=== PATIENT | male | born 1985 | race Caucasian/White ===

== ENCOUNTER 2017-01-16 17:19 | Emergency (ER) | payer SELFPAY ==
[~2017-01-16] VITALS: Ht 185.4 cm; Wt 68.0 kg
[~2017-01-16 17:19] MED LIST: AZIT250T PO; BENZ-13 PO; CYCL10TA9 PO; HYDR-3714 PO; HYDR1TAB PO; NAPR-243 PO; PRD50T PO
[2017-01-16 17:59] LABS: BILIRUBIN,URINE NEGATIVE (NEGATIVE); KETONES,URINE NEGATIVE (NEGATIVE); LEUKOCYTE ESTERASE ,URINE 1+ (NEGATIVE); NITRITE,URINE NEGATIVE (NEGATIVE); PH,URINE 6 (5-9); PROTEIN,URINE NEGATIVE (NEGATIVE); UROBILINOGEN,URINE 1 MG/DL (NORMAL)
--- NOTE | 2017-01-16 18:00 | ED Back Pain ---
General Chief Complaint: Back Problems Stated Complaint: L SIDE LOWER BACK PAIN Nursing Triage Note: PT AMBULATES TO ROOM 4 PT STATES HAD SUDDEN ONSET PAIN AT 1000 THIS AM, L SIDE FLANK AREA, RATES PAIN 8/10. DENIES N/V. HAS HAD SOME SWEATING Nursing Sepsis Screen: No Definite Risk Source of Information: Patient, Spouse Exam Limitations: No Limitations History of Present Illness Time Seen by Provider: 17:56 Initial Comments Patient presents to ER by private conveyance with chief complaint of starting about 10 AM this morning he had some sharp stabbing pain in his left flank that wraps around the front of his left side. Says it is severely painful and he has been mostly just laying around and drinking lots of fluids for it. He has no dysuria or discharge. He has no fevers chills nausea vomiting or diarrhea. He has no past medical history and or drug allergy. He's never had a kidney stone in the past. He seen no blood in his urine. Allergies and Home Medications Allergies Coded Allergies: Latex (Verified Allergy, Mild, 08/15/11) Home Medications Azithromycin 250 Mg Tablet, 250 MG PO UD, #6 TAKE 2 TABLETS TODAY, THEN TAKE 1 TABLET DAILY FOR 4 MORE DAYS Prescribed by: MICHAEL VEGA on 11/12/15 1716 Benzonatate 100 Mg Capsule, 100 MG PO TID PRN for COUGH, #15 Prescribed by: MICHAEL VEGA on 11/12/15 1716 Constitutional: see HPI, No chills, No diaphoresis EENTM: No blurred vision, No double vision Respiratory: No cough, No phlegm, No short of breath Cardiovascular: No chest pain, No palpitations Gastrointestinal: see HPI, abdominal pain (Left flank left flank), No constipation, No diarrhea, No jaundice, No nausea, No vomiting Genitourinary: No discharge, No dysuria Musculoskeletal: see HPI, back pain, No joint pain Skin: No pruritus, No rash Psychiatric/Neurological: Denies Headache, Denies Numbness Past Hyjzjda-Bcpzdz-Ysfghk Hx Patient Social History Alcohol Use: Regular Use Recreational Drug Use: No Smoking Status: Current Everyday Smoker Type Used: Cigarettes Recent Foreign Travel: No Contact w/Someone Who Travel: No Recent Infectious Disease Expo: No Immunizations Up To Date Tetanus Booster (TDap): Less than 5yrs Surgeries HX Surgeries: Yes Respiratory Hx Respiratory Disorders: No Cardiovascular Hx Cardiac Disorders: No Neurological Hx Neurological Disorders: No Genitourinary Hx Genitourinary Disorders: No Gastrointestinal Hx Gastrointestinal Disorders: No Musculoskeletal Hx Musculoskeletal Disorders: No Endocrine Hx Endocrine Disorders: No HEENT HX ENT Disorders: No Cancer Hx Cancer: No Psychosocial Hx Psychiatric Problems: No Integumentary HX Skin/Integumentary Disorder: No Blood Transfusions Hx Blood Disorders: No Adverse Reaction to a Blood Tr: No Physical Exam Vital Signs Vital Sign - Last 12Hours 01/16/17 17:40 Temp 97.4 Pulse 83 Resp 18 B/P (MAP) 119/87 Pulse Ox 97 Capillary Refill : Less Than 3 Seconds General Appearance: WD/WN, Mild Distress HEENT: PERRL/EOMI, Pharynx Normal Neck: Normal Inspection, Supple Cardiovascular: Regular Rate, Rhythm, No Edema Respiratory: Lungs Clear, Normal Breath Sounds Peripheral Pulses: 2+ Dorsalis Pedis (R), 2+ Left Dors-Pedis (L) Gastrointestinal: Normal Bowel Sounds, Soft, Tenderness (left upper quadrant and left flank) Back: Normal Inspection, CVA Tenderness (L) (left more than right), CVA Tenderness (R) Extremity: Normal Capillary Refill, Normal Inspection, No Pedal Edema Neurologic/Psychiatric: Alert, Oriented x3 Skin: Normal Color, Warm/Dry Progress/Results/Core Measures Results/Orders Lab Results Laboratory Tests Test 01/16/17 17:50 Range/Units Urine Color YELLOW Urine Clarity SLIGHTLY CLOUDY Urine pH 6 5-9 Urine Specific [place] 1.020 1.016-1.022 Urine Protein NEGATIVE NEGATIVE Urine Glucose (UA) NEGATIVE NEGATIVE Urine Ketones NEGATIVE NEGATIVE Urine Nitrite NEGATIVE NEGATIVE Urine Bilirubin NEGATIVE NEGATIVE Urine Urobilinogen 1 NORMAL MG/DL Urine Leukocyte Esterase 1+ H NEGATIVE Urine RBC (Auto) NEGATIVE NEGATIVE Urine RBC NONE /HPF Urine WBC 0-2 /HPF Urine Squamous Epithelial Cells NONE /HPF Urine Crystals PRESENT H /LPF Urine Amorphous Sediment FEW DANIS URATES H /LPF Urine Bacteria NEGATIVE /HPF Urine Casts NONE /LPF Urine Mucus LARGE H /LPF Urine Culture Indicated NO My Orders Orders - KAYLIN RIBEIRO Ct Abd/Pelvis Wo(Kidney Stone) (01/16/17 17:55) Abdomen/Kub 1view (01/16/17 17:55) Saline Lock/Iv-Start (01/16/17 17:55) Ua Culture If Indicated (01/16/17 17:55) Ketorolac Injection (Toradol Injection) (01/16/17 18:15) Medications Given in ED Current Medications Medications Dose Ordered Sig/[place] Route Start Time Stop Time Status Last Admin Dose Admin Ketorolac Tromethamine 15 mg ONCE ONCE IVP 01/16/17 18:15 01/16/17 18:16 DC 01/16/17 18:06 15 MG Vital Signs/I&O Vital Sign - Last 12Hours 01/16/17 17:40 Temp 97.4 Pulse 83 Resp 18 B/P (MAP) 119/87 Pulse Ox 97 Blood Pressure Mean: 98 Diagnostic Imaging Diagonstic Imaging: CT Plain Films/CT/US/NM/MRI: abdomen, pelvis (without, kidney stone protocol) Comments [facility]. [place], [place] NAME: ERIC ARANDAGnodal REC#: [id number] PT STATUS: REG ER : 1985 PHYSICIAN: KAYLIN RIBEIRO MD ADMIT DATE: 01/16/17/ER Draft Date of Exam:01/16/17 CT ABD/PELVIS WO(KIDNEY STONE) PROCEDURE: CT urinary tract, rule out kidney stone. TECHNIQUE: Multiple contiguous axial images were obtained through the abdomen and pelvis without the use of intravenous contrast. INDICATION: Left flank pain. FINDINGS: Lung bases are clear. Liver appears normal. Gallbladder is decompressed. There is a large amount of food residue in the stomach. Spleen is not enlarged. Pancreas is normal. Adrenals and kidneys appear normal. Large and small intestines appear normal. Appendix is normal. Urinary bladder and prostate appear normal. IMPRESSION: Negative CT abdomen and pelvis. Dictated on workstation # [id number] Dict: 01/16/17 1839 Trans: 01/16/17 1841 [facility] [id number] Interpreted by: MARII BAIRD Electronically signed by: Reviewed: Reviewed by Me Diagonstic Imaging: Xray Plain Films/CT/US/NM/MRI: abdomen Comments NAME: VALERIO ARANDA Pressly REC#: [id number] PT STATUS: REG ER : 1985 PHYSICIAN: KAYLIN RIBEIRO MD ADMIT DATE: 01/16/17/ER Draft Date of Exam:01/16/17 ABDOMEN/KUB 1VIEW INDICATION: Left flank pain. EXAMINATION: KUB at 6:17 p.m. FINDINGS: Bowel gas pattern is normal. There are no pathologic masses or calcifications. IMPRESSION: Negative abdomen. Dictated on workstation # [id number] Dict: 01/16/171816 Trans: 01/16/17 182 [id number] Interpreted by: MARII BAIRD Electronically signed by: Reviewed: Reviewed by Me Departure Impression Impression: Primary Impression: Back pain Qualified Codes: M54.9 - Dorsalgia, unspecified Disposition: HOME, SELF-CARE Condition: Stable Departure-Patient Inst. Decision time for Depature: 18:54 Referrals: NO,LOCAL PHYSICIAN (PCP/Family) Primary Care Physician Patient Instructions: Kidney Stones (DC) Add. Discharge Instructions: Drink copious amounts of fluids. Caffeine is okay. Use ibuprofen 800 mg every 8 hours or you can use Tylenol 1000 mg every 8 hours as needed to keep your pain under control. If you develop new or worsening symptoms such as nausea and vomiting, fever, chills you should return to the ER immediately. All discharge instructions reviewed with patient and/or family. Voiced understanding. KAYLIN RIBEIRO Jan 16, 2017 18:00
[2017-01-16 18:07] LABS: WBC,URINE 0-2 /HPF
[2017-01-16] MEDS ORDERED: KETOROLAC 30 MG/ML VIAL IVP ONE (18:15)
--- NOTE | 2017-01-16 18:20 | Diagnostic Imaging Report ---
INDICATION: Left flank pain. EXAMINATION: KUB at 6:17 p.m. FINDINGS: Bowel gas pattern is normal. There are no pathologic masses or calcifications. IMPRESSION: Negative abdomen. Dictated by: Dictated on workstation # [id number]
--- NOTE | 2017-01-16 18:42 | Diagnostic Imaging Report ---
PROCEDURE: CT urinary tract, rule out kidney stone. TECHNIQUE: Multiple contiguous axial images were obtained through the abdomen and pelvis without the use of intravenous contrast. INDICATION: Left flank pain. FINDINGS: Lung bases are clear. Liver appears normal. Gallbladder is decompressed. There is a large amount of food residue in the stomach. Spleen is not enlarged. Pancreas is normal. Adrenals and kidneys appear normal. Large and small intestines appear normal. Appendix is normal. Urinary bladder and prostate appear normal. IMPRESSION: Negative CT abdomen and pelvis. Dictated by: Dictated on workstation # [id number]
[2017-01-16 19:02] VITALS: BP 126/80
== END 2017-01-16 19:02 | disposition home or self-care (01) ==
LOC: EDUNIT# 17:19 → ER 17:20
DX: M54.5 Low back pain (principal); F17.210 Nicotine dependence, cigarettes, uncomplicated
CPT/HCPCS: 74000; 74176; 81000; 96374

== ENCOUNTER 2017-08-10 22:07 | Emergency (ER) | payer SELFPAY ==
[~2017-08-10] VITALS: Ht 185.4 cm; Wt 65.8 kg
--- OUTSIDE RECORDS SUMMARY | 2017-08-10 22:12 | XMS REPORT | Continuity of Care Document ---
Author Author [facility] Organization [facility] Address Unknown Phone Unavailable Allergies Active Description Code Type Severity Reaction Onset Reported/Identified Relationship to Patient Clinical Status Yes latex [id number] Drug Allergy Mild N/A 08/15/2011 Medications There is no data. 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 Results Test Result Range Complete urinalysis with reflex to culture - 01/16/17 17:50 Urine color determination YELLOW NRG Urine clarity determination SLIGHTLY CLOUDY NRG Urine pH measurement by test strip 6 5-9 Specific gravity of urine by test strip 1.020 1.016- 1.022 Urine protein assay by test strip, semi-quantitative NEGATIVE NEGATIVE Urine glucose detection by automated test strip NEGATIVE NEGATIVE Erythrocytes detection in urine sediment by light microscopy NEGATIVE NEGATIVE Urine ketones detection by automated test strip NEGATIVE NEGATIVE Urine nitrite detection by test strip NEGATIVE NEGATIVE Urine total bilirubin detection by test strip NEGATIVE NEGATIVE Urine urobilinogen measurement by automated test strip (mass/volume) 1 mg/dL NORMAL Urine leukocyte esterase detection by dipstick 1+ NEGATIVE Automated urine sediment erythrocyte count by microscopy (number/high power field) NONE NRG Automated urine sediment leukocyte count by microscopy (number/high power field ) [HPF] NRG Bacteria detection in urine sediment by light microscopy NEGATIVE NRG Squamous epithelial cells detection in urine sediment by light microscopy NONE NRG Crystals detection in urine sediment by light microscopy PRESENT NRG Casts detection in urine sediment by light microscopy NONE NRG Mucus detection in urine sediment by light microscopy LARGE NRG Complete urinalysis with reflex to culture NO NRG Amorphous sediment detection in urine sediment by light microscopy FEW DANIS URATES NRG Encounters ACCT No. Visit Date/Time Discharge Status Pt. Type Provider Facility Loc./Unit Complaint [id number] 01/16/2017 17:20:00 01/16/2017 19:02:00 DIS Emergency KAYLIN RIBEIRO MD [facility] ER L SIDE LOWER BACK PAIN [id number] 11/12/2015 17:08:00 11/12/2015 17:44:00 DIS Emergency MICHAEL VEGA APRN [facility] ER SOA [id number] 11/13/2013 07:39:00 11/13/2013 10:44:00 DIS Emergency [id number] 08/15/2011 10:43:00 Document Registration
[2017-08-11] MEDS ORDERED: HYDROcodone/APAP 5 MG/325 MG (LORTAB) TAB PO ONE (00:15)
--- NOTE | 2017-08-11 02:04 | ED Upper Extremity ---
General Chief Complaint: Upper Extremity Stated Complaint: RIGHT HAND INJ Nursing Triage Note: pt reports he fell off his porch approx 1-2 hours ago. c/o right hand injury. Nursing Sepsis Screen: No Definite Risk Source: patient Exam Limitations: no limitations History of Present Illness Date Seen by Provider: Aug 11, 2017 Time Seen by Provider: 00:04 Initial Comments This 31-year-old young man presents to the emergency room with right wrist injury after falling off a porch. He landed on outstretched arms. He has a mobile disfigurement on the palmar aspect of the wrist suspicious for tendon rupture. He also has pain in the hand. He denies any other injury. Allergies and Home Medications Allergies Coded Allergies: Latex (Verified Allergy, Mild, 08/15/11) Patient Home Medication List Home Medication List Reviewed: Yes Constitutional: no symptoms reported EENTM: no symptoms reported Respiratory: no symptoms reported Cardiovascular: no symptoms reported Gastrointestinal: no symptoms reported Genitourinary: no symptoms reported Musculoskeletal: see HPI Skin: no symptoms reported Psychiatric/Neurological: No Symptoms Reported Past Cqyniub-Kltypr-Tswklo Hx Patient Social History Alcohol Use: Occasionally Uses Number of Drinks Today: AA Alcohol Beverage of Choice: Beer Recreational Drug Use: Yes (marijuana) Smoking Status: Current Everyday Smoker Type Used: Cigarettes Recent Foreign Travel: No Contact w/Someone Who Travel: No Recent Infectious Disease Expo: No Immunizations Up To Date Tetanus Booster (TDap): Less than 5yrs Surgeries History of Surgeries: Yes (hernia repair) Surgeries: Orthopedic Respiratory History of Respiratory Disorde: No Cardiovascular History of Cardiac Disorders: No Neurological History of Neurological Disord: No Gastrointestinal History of Gastrointestinal Di: No Musculoskeletal History of Musculoskeletal Dis: No Endocrine History of Endocrine Disorders: No HEENT History of HEENT Disorders: No Cancer History of Cancer: No Psychosocial History of Psychiatric Problem: No Integumentary History of Skin or Integumenta: No Blood Transfusions History of Blood Disorders: No Adverse Reaction to a Blood Tr: No Physical Exam Vital Signs Vital Signs - First Documented 08/10/17 22:31 Temp 100.6 Pulse 109 Resp 16 B/P (MAP) 117/97 (104) Pulse Ox 97 O2 Delivery Room Air Capillary Refill : Less Than 3 Seconds General Appearance: WD/WN, no apparent distress HEENT: normal ENT inspection Cardiovascular: regular rate, rhythm, no edema, no murmur Respiratory: lungs clear, normal breath sounds Shoulder: normal inspection, non-tender, no evidence of injury Elbow/Forearm: normal inspection, non-tender, no evidence of injury, normal ROM , Right Wrist: Yes deformity (There is a mobile deformity on the palmar aspect of the right wrist suspicious for flexor tendon rupture, this area is a focus of tenderness), Yes limited ROM, Yes pain, Yes soft tissue tenderness Hand: bone tenderness, ecchymosis, limited ROM, stiffness Neurologic/Psychiatric: nozzle and sleeve worker II-XII nml as tested, no motor/sensory deficits, alert, normal mood/affect, oriented x 3 Skin: normal color, warm/dry Progress/Results/Core Measures Results/Orders My Orders Orders - AYDE BREEN MD Forearm, Right, 2 Views (08/11/17 00:08) Hand, Right, 3 Views (08/11/17 00:08) Hydrocodone/Apap 5/325 Tablet (Lortab 5 (08/11/17 00:15) Medications Given in ED Current Medications Medications Dose Ordered Sig/[place] Route Start Time Stop Time Status Last Admin Dose Admin Acetaminophen/ Hydrocodone Bitart 1 tab ONCE ONCE PO 08/11/17 00:15 08/11/17 00:16 DC 08/11/17 00:25 1 TAB Vital Signs/I&O Vital Sign - Last 12Hours 08/10/17 08/11/17 22:31 02:11 Temp 100.6 Pulse 109 78 Resp 16 18 B/P (MAP) 117/97 (104) 134/84 Pulse Ox 97 98 O2 Delivery Room Air Blood Pressure Mean: 104 Progress Note : Progress Note Case was discussed with Dr. Beauchamp who advised follow-up with him in clinic. An AlumaFoam splint was applied for comfort and immobilization. Hydrocodone was given for pain. Diagnostic Imaging Diagonstic Imaging: Xray Plain Films/CT/US/NM/MRI: forearm, hand Comments X-ray of the forearm revealed no fractures or dislocations. The hand x-ray demonstrated a small avulsion type fracture at the base of the fourth proximal phalanx. Acuity is uncertain but patient does have tenderness at this location. Departure Impression Impression: Primary Impression: Tendon rupture of wrist Qualified Codes: S66.911A - Strain of unspecified muscle, fascia and tendon at wrist and hand level, right hand, initial encounter Additional Impression: Finger fracture Qualified Codes: S62.644A - Nondisplaced fracture of proximal phalanx of right ring finger, initial encounter for closed fracture Disposition: HOME, SELF-CARE Condition: Improved Departure-Patient Inst. Decision time for Depature: 02:01 Referrals: NIKHIL BEAUCHAMP,LOCAL PHYSICIAN (PCP) Primary Care Physician Patient Instructions: Finger Fracture Add. Discharge Instructions: Keep your wrist in the splint as much as possible. You may ice in 20 minute intervals to help with pain and swelling. Use ibuprofen up to 600 mg every 6 hours as needed for pain control. Add Tylenol (acetaminophen) up to 1000 mg every 6 hours as needed for additional pain relief. Follow-up with Dr. Beauchamp as soon as possible. Return to care if you have any other problems or concerns. All discharge instructions reviewed with patient and/or family. Voiced understanding. Work/School Note: Work Release Form Date Seen in the Emergency Department: Aug 11, 2017 Return to Work: Aug 12, 2017 Other Restrictions Listed Below: Avoid use of right hand until cleared by orthopedic physician Copy Copies To 1: NIKHIL BEAUCHAMP JOSHUA T MD Aug 11, 2017 02:03
[2017-08-11 02:11] VITALS: BP 134/84
--- NOTE | 2017-08-11 05:58 | Diagnostic Imaging Report ---
INDICATION: Fall. Injury. Pain. COMPARISON: None. FINDINGS: 2 views of the right forearm show no fractures, dislocations, or other acute bony abnormalities identified. Joint spaces are well maintained throughout. The soft tissues appear unremarkable. No radiopaque foreign bodies are identified. IMPRESSION: No acute fractures or dislocations of the right forearm. Dictated by: Dictated on workstation # [id number]
--- NOTE | 2017-08-11 06:09 | Diagnostic Imaging Report ---
INDICATION: Fall. Pain. COMPARISON: None FINDINGS: 3 radiographic views of the right hand were obtained. There is a small triangular shaped extraosseous calcification along the proximal margins of the fourth proximal phalanx, laterally. Margins appear fairly well-defined. Otherwise, no acute appearing osseous abnormalities are seen. Joint spaces are maintained. Soft tissue structures are unremarkable. No unexpected radiopaque foreign bodies are seen. IMPRESSION: 1. Small avulsion type fracture of the proximal fourth phalanx. This is felt to most likely represent old injury, but correlation with point tenderness is recommended. Dictated by: Dictated on workstation # [id number]
== END 2017-08-11 02:11 | disposition home or self-care (01) ==
LOC: EDUNIT# 22:07 → ER 22:09
DX: S66.911A Strain of unspecified muscle, fascia and tendon at wrist and hand level, right hand, initial encounter (principal); S62.614A Displaced fracture of proximal phalanx of right ring finger, initial encounter for closed fracture; F12.10 Cannabis abuse, uncomplicated; F17.210 Nicotine dependence, cigarettes, uncomplicated; Z91.040 Latex allergy status; W13.8XXA Fall from, out of or through other building or structure, initial encounter
CPT/HCPCS: 73090; 73130

== ENCOUNTER 2018-10-20 16:56 | Emergency (ER) | payer SELFPAY ==
[~2018-10-20] VITALS: Ht 188 cm; Wt 65.8 kg
[~2018-10-20 16:56] MED LIST changes: -BENZ-13 PO; +BENZ100C18 PO
--- OUTSIDE RECORDS SUMMARY | 2018-10-20 17:01 | XMS REPORT | Continuity of Care Document ---
Author Organization Unknown Address Unknown Allergies Active Description Code Type Severity Reaction Onset Reported/Identified Relationship to Patient Clinical Status Yes latex [id number] Drug Allergy Mild N/A 08/15/2011 Medications There is no data. 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 08/15/2011 Ot V15.07 ALLERGY TO LATEX 11/12/2015 MICHAEL VEGA DIRECTOR SAFETY COUNCIL Ot R05 COUGH 11/13/2015 MICHAEL VEGA DIRECTOR SAFETY COUNCIL Ot R05 COUGH 11/13/2015 MICHAEL VEGA APRN Ot R05 COUGH 01/16/2017 KAYLIN RIBEIRO MD Ot F17.210 NICOTINE DEPENDENCE, CIGARETTES, UNCOMPL 01/16/2017 QUINTIN RENTERIA, KAYLIN Jaeger Ot M10.9 GOUT, UNSPECIFIED 01/16/2017 QUINTIN RENTERIA, KAYLIN Jaeger Ot M54.5 LOW BACK PAIN 08/11/2017 JAMSHID RENTERIA, AYDE Bunch Ot F12.10 CANNABIS ABUSE, UNCOMPLICATED 08/11/2017 AYDE BREEN MD Ot F17.210 NICOTINE DEPENDENCE, CIGARETTES, UNCOMPL 08/11/2017 JAMSHID RENTERIA, AYDE Bunch Ot S62.614A DISP FX OF PROXIMAL PHALANX OF RIGHT RIN 08/11/2017 AYDE BREEN MD Ot S66.911A STRAIN OF UNSP MUSC/FASC/TEND AT WRS/HND 08/11/2017 AYDE BREEN MD Ot S69.91XA UNSP INJURY OF RIGHT WRIST, HAND AND FIN 08/11/2017 AYDE BREEN MD Ot W13.8XXA FALL FROM, OUT OF [facility]ROUGH [facility] BU[facility] 08/11/2017 AYDE BREEN MD Ot Z91.040 LATEX ALLERGY STATUS 08/12/2017 AYDE BREEN MD Ot F12.10 CANNABIS ABUSE, UNCOMPLICATED 08/12/2017 AYDE BREEN MD Ot F17.210 NICOTINE DEPENDENCE, CIGARETTES, UNCOMPL 08/12/2017 AYDE BREEN MD Ot S62.614A DISP FX OF PROXIMAL PHALANX OF RIGHT RIN 08/12/2017 AYDE BREEN MD Ot S66.911A STRAIN OF UNSP MUSC/FASC/TEND AT WRS/HND 08/12/2017 AYDE BREEN MD Ot S69.91XA UNSP INJURY OF RIGHT WRIST, HAND AND FIN 08/12/2017 AYDE BREEN MD Ot W13.8XXA FALL FROM, OUT OF OR THROUGH [facility] BU[facility] 08/12/2017 AYDE BREEN MD, Ot Z91.040 LATEX ALLERGY STATUS Procedures There is no data. Results Test Result Range Complete urinalysis with reflex to culture - 01/16/17 17:50 Urine color determination YELLOW NRG Urine clarity determination SLIGHTLY CLOUDY NRG Urine pH measurement by test strip 6 5-9 Specific gravity of urine by test strip 1.020 1.016-1.022 Urine protein assay by test strip, semi-quantitative [...] sediment leukocyte count by microscopy (number/high power field) [HPF] NRG Bacteria detection in urine sediment [...] Status Pt. Type Provider Facility Loc./Unit Complaint [id number] 08/10/2017 22:09:00 08/11/2017 02:11:00 DIS Emergency JAMSHID RENTERIA, AYDE Bunch [facility] ER RIGHT HAND INJ [id number] 01/16/2017 17:20:00 01/16/2017 19:02:00 DIS Emergency KAYLIN RIBEIRO MD [facility] ER L SIDE LOWER BACK PAIN [id number] 11/12/2015 17:08:00 11/12/2015 17:44:00 DIS Emergency MICHAEL VEGA APRN [facility] ER SOA [id number] 11/13/2013 07:39:00 11/13/2013 10:44:00 DIS Emergency [id number] 08/15/2011 10:43:00 Document Registration
[2018-10-20] MEDS ORDERED: LIDOCAINE 2% VISCOUS 15 ML UDC PO ONE (18:00)
[2018-10-20] MEDS ORDERED: AMOX500C2 PO (18:01)
--- NOTE | 2018-10-20 18:01 | ED EENT ---
History of Present Illness General Chief Complaint: Dental Problems/Pain Stated Complaint: R SIDE DENTAL PAIN Nursing Triage Note: PT AMB TO TRIAGE WITH COMPLAINT OF RIGHT SIDE DENTAL PAIN. STATES HAS BEEN GOING ON FOR ROUGHLY A WEEK. History of Present Illness Date Seen by Provider: October 20, 2018 Time Seen by Provider: 17:40 Initial Comments 32-year-old male presents for right-sided dental pain. Timing/Duration: gradual, last week Location: dental Prearrival Treatment: no prearrival treatment Associated Symptoms: denies symptoms Allergies and Home Medications Allergies Coded Allergies: Latex (Verified Allergy, Mild, 08/15/11) Home Medications Amoxicillin 500 Mg Capsule, 500 MG PO TID Prescribed by: TALHA DELA CRUZ on 10/20/18 1801 Patient Home Medication List Home Medication List Reviewed: Yes Review of Systems Review of Systems Constitutional: no symptoms reported, see HPI Mouth: see HPI, pain (right dental) All Other Systems Reviewed Negative Unless Noted: Yes Past Adqpejo-Vqohsz-Pulbvq Hx Past Med/Social Hx: Reviewed Nursing Past Med/Soc Hx Patient Social History Alcohol Use: Occasionally Uses Number of Drinks Today: AA Alcohol Beverage of Choice: Beer Recreational Drug Use: No (PAST HX) Smoking Status: Current Everyday Smoker Type Used: Cigarettes, Electronic/Vapor Recent Foreign Travel: No Contact w/Someone Who Travel: No Recent Infectious Disease Expo: No Immunizations Up To Date Tetanus Booster (TDap): Unknown Past Medical History Surgeries: Yes (hernia repair) Orthopedic Respiratory: No Cardiac: No Neurological: No Gastrointestinal: No Musculoskeletal: No Endocrine: No HEENT: No Cancer: No Psychosocial: No Integumentary: No Blood Disorders: No Adverse Reaction/Blood Tranf: No Physical Exam Vital Signs Vital Signs - First Documented 10/20/18 17:26 Temp 97.5 Pulse 72 Resp 20 B/P (MAP) 143/87 (105) Pulse Ox 99 O2 Delivery Room Air Height, Weight, BMI Height: 6'2.00" Weight: 145lbs. oz. [id number]; BMI Method:Stated General Appearance: WD/WN, no apparent distress Mouth/Throat: dental tenderness (right cavities noted to upper and lower teeth with severe decay) Neck: non-tender, full range of motion, lymphadenopathy (R) Cardiovascular: regular rate, rhythm Respiratory: chest non-tender, lungs clear, normal breath sounds Gastrointestinal: normal bowel sounds, non tender, soft Neurologic/Psychiatric: no motor/sensory deficits, alert, normal mood/affect, oriented x 3 Progress/Results/Core Measures Results/Orders My Orders Orders - TALHA DELA CRUZ Tramadol Tablet (Ultram Tablet) (10/20/18 18:00) Lidocaine 2% Viscous 15 Ml (Xylocaine Vi (10/20/18 18:00) Medications Given in ED Current Medications Medications Dose Ordered Sig/[place] Route Start Time Stop Time Status Last Admin Dose Admin Lidocaine HCl 5 ml ONCE ONCE PO 10/20/18 18:00 10/20/18 18:01 DC 10/20/18 18:06 5 ML Vital Signs/I&O 10/20/18 10/20/18 17:26 18:09 Temp 97.5 97.5 Pulse 72 72 Resp 20 20 B/P (MAP) 143/87 (105) 143/87 (105) Pulse Ox 99 99 O2 Delivery Room Air Blood Pressure Mean: 105 Progress Progress Note : Time: 17:40 Progress Note Patient seen and evaluated will give tramadol 50 mg orally for pain. Lidocaine on 2 x 2 gauze to areas of pain. Discharge instructions and return precautions reviewed with the patient, all questions answered. Departure Impression Primary Impression: Dental caries Additional Impression: Pain, dental Disposition: 01 HOME, SELF-CARE Condition: Improved Departure-Patient Inst. Decision time for Depature: 17:55 Referrals: NO,LOCAL PHYSICIAN (PCP/Family) Primary Care Physician Patient Instructions: Fractured Tooth (DC), Tooth Decay, Adult (DC), Dental Pain (DC) Add. Discharge Instructions: Alternate between Tylenol 650 mg and ibuprofen 600 mg every 4 hours for pain. For more severe pain he may take tramadol 1 tablet every 8 hours. Ice pack to right cheek 20 minutes every 2 hours while awake. Apply the lidocaine patches to areas of tenderness remove before sleeping or eating. Follow-up with dentist early next week. Take antibiotic as prescribed. Return to emergency department for new, urgent health care needs. All discharge instructions reviewed with patient and/or family. Voiced understanding. Scripts Amoxicillin (Amoxicillin) 500 Mg Capsule 500 MG PO TID, #21 CAP 0 Refills Prov: TALHA DELA CRUZ 10/20/18 TALHA DELA CRUZ October 20, 2018 18:01
[2018-10-20 18:09] VITALS: BP 143/87
== END 2018-10-20 18:09 | disposition home or self-care (01) ==
LOC: EDUNIT# 16:56 → ER 16:57
DX: K02.9 Dental caries, unspecified (principal); F17.290 Nicotine dependence, other tobacco product, uncomplicated; F17.210 Nicotine dependence, cigarettes, uncomplicated; Z91.040 Latex allergy status; Z98.890 Other specified postprocedural states
CPT/HCPCS: 99283

== ENCOUNTER 2020-04-25 19:23 | Emergency (ER) | payer SELFPAY ==
[~2020-04-25] VITALS: Ht 187.9 cm; Wt 68.0 kg
[~2020-04-25 19:23] MED LIST changes: +AMOX500C2 PO
[2020-04-25] MEDS ORDERED: fentaNYL INJECTION 100 MCG/2 ML AMP ONE (19:35)
[2020-04-25] MEDS ORDERED: ONDANSETRON 4 MG/2 ML (SDV) Z0FRAN ONE (19:35)
[2020-04-25] MEDS: fentaNYL INJECTION 100 MCG/2 ML AMP IVP ONE (19:38)
[2020-04-25] MEDS: KETOROLAC 30 MG/ML VIAL ONE ×2 (19:38→19:42)
[2020-04-25] MEDS: NS IV 1000 ML 1,000 ML ONE ×2 (19:41→19:56)
[2020-04-25] MEDS ORDERED: NS IV 1000 ML 1,000 ML IV SCH ×2 (19:45→20:15)
[2020-04-25] MEDS ORDERED: ONDANSETRON 4 MG/2 ML (SDV) Z0FRAN IVP ONE (19:45)
[2020-04-25] MEDS ORDERED: KETOROLAC 30 MG/ML VIAL IVP ONE (19:45)
--- NOTE | 2020-04-25 19:45 | ED GU-Female ---
General Chief Complaint: - Urinary Stated Complaint: ABD PAIN;NAUSEA Source: patient Exam Limitations: no limitations History of Present Illness Date Seen by Provider: Apr 25, 2020 Time Seen by Provider: 19:43 Initial Comments To ER with c/o sudden onset left flank pain and nausea. Began last night, went away this morning, recurred this afternoon. Timing/Duration: constant, getting worse, changing over time Severity/Quality: severe Location: left flank Radiation: none Activities at Onset: none Prior Genitourinary Problems: none Associated Symptoms: nausea/vomiting Allergies and Home Medications Allergies Coded Allergies: Latex (Verified Allergy, Mild, 08/15/11) Home Medications Amoxicillin 500 Mg Capsule, 500 MG PO TID Prescribed by: TALHA DELA CRUZ on 10/20/18 1801 Patient Home Medication List Home Medication List Reviewed: Yes Review of Systems Review of Systems Constitutional: see HPI EENTM: see HPI Respiratory: no symptoms reported Cardiovascular: no symptoms reported Genitourinary: see HPI, flank pain Musculoskeletal: no symptoms reported Skin: no symptoms reported Psychiatric/Neurological: No Symptoms Reported Endocrine: No Symptoms Reported Past Cqolnoh-Adwrwy-Comrvl Hx Patient Social History Alcohol Beverage of Choice: Beer Type Used: Cigarettes, Electronic/Vapor Recent Foreign Travel: No Contact w/Someone Who Travel: No Immunizations Up To Date Tetanus Booster (TDap): Unknown Past Medical History Surgeries: Yes (hernia repair) Orthopedic Respiratory: No Cardiac: No Neurological: No Gastrointestinal: No Musculoskeletal: No Endocrine: No HEENT: No Cancer: No Psychosocial: No Integumentary: No Blood Disorders: No Adverse Reaction/Blood Tranf: No Physical Exam Vital Signs Vital Signs - First Documented 04/25/20 19:25 Temp 36.6 Pulse 84 Resp 22 B/P (MAP) 140/86 (104) Pulse Ox 100 Capillary Refill : Height, Weight, BMI Height: 6'2.00" Weight: 145lbs. oz. 65.621691ej; BMI Method:Stated General Appearance: WD/WN, moderate distress (laying on floor, writhing. ) Neck: non-tender, full range of motion Cardiovascular: regular rate, rhythm, no murmur Respiratory: normal breath sounds, no respiratory distress, no accessory muscle use Extremities: normal range of motion, non-tender Neurologic/Psychiatric: alert, normal mood/affect, oriented x 3 Skin: normal color, warm/dry Progress/Results/Core Measures Suspected Sepsis SIRS Temperature: Pulse: Respiratory Rate: Laboratory Tests 04/25/20 19:30: White Blood Count 10.8 Blood Pressure / Mean: Laboratory Tests 04/25/20 19:30: Creatinine 1.27, Platelet Count 254, Total Bilirubin 1.6H Results/Orders Lab Results Laboratory Tests Test 04/25/20 19:30 04/25/20 20:11 Range/Units White Blood Count 10.8 4.3-11.0 10^3/uL Red Blood Count 4.26 L 4.30-5.52 10^6/uL Hemoglobin 14.1 13.3-17.7 g/dL Hematocrit 42 40-54 % Mean Corpuscular Volume 98 80-99 fL Mean Corpuscular Hemoglobin 33 25-34 pg Mean Corpuscular Hemoglobin Concent 34 32-36 g/dL Red Cell Distribution Width 12.2 10.0-14.5 % Platelet Count 254 130-400 10^3/uL Mean Platelet Volume 9.8 9.0-12.2 fL Immature Granulocyte % (Auto) 0 % Neutrophils (%) (Auto) 77 H 42-75 % Lymphocytes (%) (Auto) 16 12-44 % Monocytes (%) (Auto) 5 0-12 % Eosinophils (%) (Auto) 2 0-10 % Basophils (%) (Auto) 0 0-10 % Neutrophils # (Auto) 8.3 H 1.8-7.8 10^3/uL Lymphocytes # (Auto) 1.7 1.0-4.0 10^3/uL Monocytes # (Auto) 0.6 0.0-1.0 10^3/uL Eosinophils # (Auto) 0.2 0.0-0.3 10^3/uL Basophils # (Auto) 0.0 0.0-0.1 10^3/uL Immature Granulocyte # (Auto) 0.0 0.0-0.1 10^3/uL Sodium Level 134 L 135-145 MMOL/L Potassium Level 3.8 3.6-5.0 MMOL/L Chloride Level 99 98-107 MMOL/L Carbon Dioxide Level 21 21-32 MMOL/L Anion Gap 14 5-14 MMOL/L Blood Urea Nitrogen 23 H 7-18 MG/DL Creatinine 1.27 0.60-1.30 MG/DL Estimat Glomerular Filtration Rate > 60 BUN/Creatinine Ratio 18 Glucose Level 111 H 70-105 MG/DL Calcium Level 10.6 H 8.5-10.1 MG/DL Corrected Calcium 8.5-10.1 MG/DL Total Bilirubin 1.6 H 0.1-1.0 MG/DL Aspartate Amino Transf (AST/SGOT) 19 5-34 U/L Alanine Aminotransferase (ALT/SGPT) 20 0-55 U/L Alkaline Phosphatase 71 40-136 U/L Total Protein 7.3 6.4-8.2 GM/DL Albumin 4.6 H 3.2-4.5 GM/DL Urine Color YELLOW Urine Clarity CLEAR Urine pH 6.0 5-9 Urine Specific Spangle 1.010 L 1.016-1.022 Urine Protein NEGATIVE NEGATIVE Urine Glucose (UA) NEGATIVE NEGATIVE Urine Ketones TRACE H NEGATIVE Urine Nitrite NEGATIVE NEGATIVE Urine Bilirubin NEGATIVE NEGATIVE Urine Urobilinogen 0.2 < = 1.0 MG/DL Urine Leukocyte Esterase NEGATIVE NEGATIVE Urine RBC (Auto) 3+ H NEGATIVE Urine RBC 10-25 H /HPF Urine WBC NONE /HPF Urine Squamous Epithelial Cells RARE /HPF Urine Crystals NONE /LPF Urine Bacteria NEGATIVE /HPF Urine Casts NONE /LPF Urine Mucus NEGATIVE /LPF Urine Culture Indicated NO My Orders Orders - MICHAEL VEGA APRN Ns Iv 1000 Ml (Sodium Chloride 0.9%) (04/25/20 19:45) Ondansetron Injection (Zofran Injectio (04/25/20 19:45) Fentanyl Injection (Sublimaze Injection (04/25/20 19:45) Ketorolac Injection (Toradol Injection) (04/25/20 19:45) Cbc With Automated Diff (04/25/20 19:39) Comprehensive Metabolic Panel (04/25/20 19:39) Ua Culture If Indicated (04/25/20 19:39) Drug Screen Stat (Urine) (04/25/20 19:39) Ct Abd/Pelvis Wo(Kidney Stone) (04/25/20 19:39) Rx-Ondansetron Po (Rx-Zofran Po) (04/25/20 20:13) Rx-Hydrocodone/Apap 5-325 Mg (Rx-Vicodin (04/25/20 20:15) Ns Iv 1000 Ml (Sodium Chloride 0.9%) (04/25/20 20:15) Rx-Trimeth/Sulfameth Ds Tab (Rx-Bactrim/ (04/25/20 20:31) Medications Given in ED Current Medications Medications Dose Ordered Sig/[place] Route Start Time Stop Time Status Last Admin Dose Admin Fentanyl Citrate 50 mcg ONCE ONCE IVP 04/25/20 19:45 04/25/20 19:46 DC 04/25/20 19:38 50 MCG Ketorolac Tromethamine 30 mg STK-MED ONCE .ROUTE 04/25/20 19:35 04/25/20 19:38 DC 04/25/20 19:38 30 MG Ondansetron HCl 8 mg ONCE ONCE IVP 04/25/20 19:45 04/25/20 19:46 DC 04/25/20 19:38 8 MG Vital Signs/I&O 04/25/20 19:25 Temp 36.6 Pulse 84 Resp 22 B/P (MAP) 140/86 (104) Pulse Ox 100 Capillary Refill : Diagnostic Imaging Diagonstic Imaging: CT Comments NAME: VALERIO ARANDA Mil [facility] REC#: [id number] PT STATUS: REG ER : 1985 PHYSICIAN: MICHAEL VEGA SALES ADVISOR ADMIT DATE: 04/25/20/ER Signed Date of Exam:04/25/20 CT ABD/PELVIS WO(KIDNEY STONE) EXAMINATION: CT abdomen and pelvis without contrast. TECHNIQUE: Multiple contiguous axial images were obtained through the abdomen and pelvis without the use of intravenous contrast. All CT scans use one or more of the following dose optimizing techniques: automated exposure control, MA and/or KvP adjustment based on patient size and exam type or iterative reconstruction. HISTORY: Left lower quadrant pain. COMPARISON: CT abdomen and pelvis 01/16/2017. FINDINGS: Lung bases: The lung bases are clear. Solid organs: The liver is normal. The gallbladder is normal. There is no biliary ductal dilation. Pancreas is normal. Spleen is normal. Adrenal glands are normal. There is a 0.5 cm calculus within the distal left ureter resulting in mild left hydronephrosis and hydroureter. Kidneys are otherwise unremarkable. Bowel: The stomach and small bowel are normal without obstruction. The colon and appendix are normal. Peritoneum: There is no intraperitoneal free fluid or free air. No suspicious lymphadenopathy. Vasculature: Normal without aneurysm. Musculoskeletal: No suspicious osseous lesion or compression fracture. Pelvis: The prostate gland is normal. The urinary bladder is normal. IMPRESSION: A 0.5 cm calculus within the distal left ureter resulting in mild left hydronephrosis and hydroureter. Dictated by: Dictated on workstation # [id number] Dict: 04/25/202005 Trans: 04/25/202016 [id number] Interpreted by: RAZ BAIRD DO Electronically signed by: RAZ BAIRD DO 04/25/202016 Departure Impression Primary Impression: Left ureteral stone Disposition: HOME, SELF-CARE Condition: Stable Departure-Patient Inst. Decision time for Depature: 20:33 Referrals: NO,LOCAL PHYSICIAN (PCP/Family) Primary Care Physician Patient Instructions: Kidney Stones (DC) Add. Discharge Instructions: Take the antibiotics 1 tablet twice daily. Take the nausea medication as needed and the pain medication as needed in addition to ibuprofen for pain control. Return to ER for any fevers intolerable pain or other concerns. Follow-up with your doctor next week. All discharge instructions reviewed with patient and/or family. Voiced understanding. MICHAEL VEGA SALES ADVISOR Apr 25, 2020 19:45
[2020-04-25 19:52] LABS: BASOPHILS % (AUTO) 0 % (0-10); EOSINOPHILS # (AUTO) 0.2 10^3/uL (0.0-0.3); EOSINOPHILS % (AUTO) 2 % (0-10); HEMATOCRIT 42 % (40-54); HEMOGLOBIN 14.1 g/dL (13.3-17.7); LYMPHOCYTES # (AUTO) 1.7 10^3/uL (1.0-4.0); LYMPHOCYTES % (AUTO) 16 % (12-44); MEAN CORPUSCULAR HEMOGLOBIN 33 pg (25-34); MEAN CORPUSCULAR HGB CONC 34 g/dL (32-36); MEAN CORPUSCULAR VOLUME 98 fL (80-99); MEAN PLATELET VOLUME 9.8 fL (9.0-12.2); MONOCYTES # (AUTO) 0.6 10^3/uL (0.0-1.0); MONOCYTES % (AUTO) 5 % (0-12); NEUTROPHILS # (AUTO) 8.3 10^3/uL (1.8-7.8); NEUTROPHILS % (AUTO) 77 % (42-75); PLATELET COUNT 254 10^3/uL (130-400); WHITE BLOOD COUNT 10.8 10^3/uL (4.3-11.0)
[2020-04-25 20:05] LABS: ALANINE AMINOTRANSFERASE 20 U/L (0-55); ALBUMIN 4.6 GM/DL (3.2-4.5); ALKALINE PHOSPHATASE 71 U/L (40-136); BILIRUBIN,TOTAL 1.6 MG/DL (0.1-1.0); BUN/CREATININE RATIO 18; CALCIUM 10.6 MG/DL (8.5-10.1); CARBON DIOXIDE 21 MMOL/L (21-32); CHLORIDE 99 MMOL/L (98-107); CREATININE SERUM 1.27 MG/DL (0.60-1.30); GFR ESTIMATED > 60; GLUCOSE 111 MG/DL (70-105); POTASSIUM 3.8 MMOL/L (3.6-5.0); SODIUM 134 MMOL/L (135-145); TOTAL PROTEIN 7.3 GM/DL (6.4-8.2)
[2020-04-25] MEDS ORDERED: RX-ONDANSETRON 4 MG ODT (ZOFRAN) PPK #4 PO STA (20:13)
[2020-04-25] MEDS ORDERED: RX-HYDROCODONE/APAP 5/325 MG #4 TAB PK PO PRN (20:15)
--- NOTE | 2020-04-25 20:18 | Diagnostic Imaging Report ---
EXAMINATION: CT abdomen and pelvis without contrast. TECHNIQUE: Multiple contiguous axial images were obtained through the abdomen and pelvis without the use of intravenous contrast. All CT scans use one or more of the following dose optimizing techniques: automated exposure control, MA and/or KvP adjustment based on patient size and exam type or iterative reconstruction. HISTORY: Left lower quadrant pain. COMPARISON: CT abdomen and pelvis 01/16/2017. FINDINGS: Lung bases: The lung bases are clear. Solid organs: The liver is normal. The gallbladder is normal. There is no biliary ductal dilation. Pancreas is normal. Spleen is normal. Adrenal glands are normal. There is a 0.5 cm calculus within the distal left ureter resulting in mild left hydronephrosis and hydroureter. Kidneys are otherwise unremarkable. Bowel: The stomach and small bowel are normal without obstruction. The colon and appendix are normal. Peritoneum: There is no intraperitoneal free fluid or free air. No suspicious lymphadenopathy. Vasculature: Normal without aneurysm. Musculoskeletal: No suspicious osseous lesion or compression fracture. Pelvis: The prostate gland is normal. The urinary bladder is normal. IMPRESSION: A 0.5 cm calculus within the distal left ureter resulting in mild left hydronephrosis and hydroureter. Dictated by: Dictated on workstation # [id number]
[2020-04-25 20:19] LABS: BILIRUBIN,URINE NEGATIVE (NEGATIVE); CLARITY,URINE CLEAR; COLOR,URINE YELLOW; GLUCOSE, URINE (UA) NEGATIVE (NEGATIVE); KETONES,URINE TRACE (NEGATIVE); LEUKOCYTE ESTERASE ,URINE NEGATIVE (NEGATIVE); NITRITE,URINE NEGATIVE (NEGATIVE); PROTEIN,URINE NEGATIVE (NEGATIVE)
[2020-04-25 20:27] LABS: BACTERIA,URINE NEGATIVE /HPF; SQUAMOUS EPITHELIAL CELL,UR RARE /HPF
[2020-04-25] MEDS ORDERED: RX-TRIMETH/SULFA. 160-800 MG (BACTRIM DS) TAB PPK#2 PO STA (20:31)
[2020-04-25 20:50] VITALS: BP 140/91
[2020-04-25 22:42] LABS: AMPHETAMINE SCREEN, URINE POSITIVE (NEGATIVE); BARBITURATE SCREEN URINE NEGATIVE (NEGATIVE); BENZODIAZEPINES SCREEN URINE NEGATIVE (NEGATIVE); CANNABINOID SCREEN, URINE NEGATIVE (NEGATIVE); COCAINE SCREEN URINE NEGATIVE (NEGATIVE); METHADONE STAT NEGATIVE (NEGATIVE); METHAMPHETAMINE SCREEN URINE S POSITIVE (NEGATIVE); OPIATE SCREEN URINE NEGATIVE (NEGATIVE); OXYCODONE STAT NEGATIVE (NEGATIVE); PROPOXYPHENE STAT NEGATIVE (NEGATIVE); TRICYCLIC ANTIDEPRESSANTS SCRE NEGATIVE (NEGATIVE)
== END 2020-04-25 20:51 | disposition home or self-care (01) ==
LOC: EDUNIT# 19:23 → ER 19:25
DX: N13.2 Hydronephrosis with renal and ureteral calculous obstruction (principal); Z91.040 Latex allergy status
CPT/HCPCS: 36415; 74176; 80053; 80306; 81000; 85025

== ENCOUNTER → 2021-04-07 | Outpatient (CLI) | payer BC ==
--- NOTE | 2021-04-08 13:31 | Holter Monitor ---
HOLTER MONITOR DATE OF PROCEDURE: 04/07/2021. INDICATION: Abnormal electrocardiogram. PROCEDURE: A 24-hour Holter monitor was obtained for a total of 24 hours. The study quality is adequate. RESULTS: 1. Baseline sinus rhythm with an average heart rate of 69 bpm, ranging from 44- 126 bpm. 2. There were rare (18), isolated premature supraventricular complexes. 3. There were rare (7), isolated premature ventricular complexes. 4. There were no pauses exceeding 2 seconds in duration. 5. No patient diary was received. IMPRESSION: 1. This is a 24-hour Holter monitor report. 2. Baseline sinus rhythm with an average heart rate of 69 bpm, ranging from 44- 126 bpm with rare, isolated premature supraventricular and premature ventricular complexes. 3. No patient diary was received. Certain portions of this document may have been dictated utilizing voice recognition technology. Inherent to this technology, typographical and grammatical errors may exist. As much as I am diligent to identify and correct these mistakes, some errors may remain in the document. RCIHAR DHILLON JR, MD Apr 08, 2021 13:31
== END ==
LOC: CARD 09:00
PROVIDERS: ATTEND Internal Medicine Cardiovascular Disease
DX: R94.31 Abnormal electrocardiogram [ECG] [EKG] (principal)
CPT/HCPCS: 93225; 93226; 93306

== ENCOUNTER → 2021-04-09 | Outpatient (CLI) | payer BC ==
[~2021-04-09] MED LIST changes: +CATHETER FLUSH 10 ML SYR IV PRN
[2021-04-09 08:42] VITALS: BP 129/82
--- NOTE | 2021-04-09 12:35 | NUCLEAR STRESS TEST ---
TREADMILL NUCLEAR STRESS TEST Date of procedure: 04/09/2021. Primary care provider: Unknown. Admitting physician: Oscar Flores Jr., MD. INDICATION: Abnormal electrocardiogram. BASELINE ELECTROCARDIOGRAM: Sinus rhythm with nonspecific intraventricular conduction delay and early repolarization. STRESS TEST PROCEDURE: The patient was exercised for a total of 11 minutes and 27 seconds of the standard Joshua protocol achieving a maximum MET level of 12.1. The resting heart rate was 67 bpm and the peak heart rate was 169 bpm, which represents 91% of the maximum predicted heart rate. The resting blood pressure was 129/82 mmHg and the peak blood pressure was 204/79 mmHg. This represents a normal heart rate and a hypertensive blood pressure response to exercise. The test was stopped due to fatigue. There was no chest discomfort during the test. There were no arrhythmias during the test. There were no significant stress induced electrocardiogram changes. The patient exhibited excellent exercise capacity for age. NUCLEAR PROCEDURE: The patient was administered 10.4 mCi of intravenous technetium 99m Tetrofosmin at rest for the rest images. The patient was subsequently administered 30.1 mCi of intravenous technetium 99 M Tetrofosmin at peak stress for the stress images. Following an appropriate wait after each injection, imaging was obtained. The images were subsequently processed and reformatted in the usual views. Gated imaging was obtained. The image quality was adequate with a mild degree of gastrointestinal attenuation artifact. CT attenuation correction was used as a adjunct to standard imaging. Both the corrected and uncorrected images were reviewed for interpretation. NUCLEAR RESULTS: There was normal myocardial perfusion in all segments without evidence of infarction or ischemia. There was normal left ventricular chamber size with an end-diastolic volume of 90 mL and an end-systolic volume of 38 mL. There was no evidence of transient ischemic dilatation. The TID ratio was 0.95. There was normal wall motion in all segments with a calculated ejection fraction of 58%. IMPRESSION: 1. Normal heart rate and a hypertensive blood pressure response to exercise. 2. There was no chest discomfort, arrhythmias, or electrocardiogram changes during the test. 3. The patient exhibited excellent exercise capacity for age at 11 minutes and 27 seconds of the Joshua protocol. 4. There was normal myocardial perfusion in all segments without evidence of infarction or ischemia. 5. There was normal wall motion in all segments with a calculated ejection fraction of 58%. Certain portions of this document may have been dictated utilizing voice recognition technology. Inherent to this technology, typographical and grammatical errors may exist. As much as I am diligent to identify and correct these mistakes, some errors may remain in the document. OSCAR FLORES JR, MD Apr 09, 2021 12:35
== END ==
LOC: CARD 07:30
PROVIDERS: ATTEND Internal Medicine Cardiovascular Disease
DX: R94.31 Abnormal electrocardiogram [ECG] [EKG] (principal)
CPT/HCPCS: 78452; 93017; A9502

== ENCOUNTER 2022-11-07 19:54 | Emergency (ER) | payer SELFPAY ==
[~2022-11-07] VITALS: Ht 188 cm; Wt 68.0 kg
[~2022-11-07 19:54] MED LIST changes: -CATHETER FLUSH 10 ML SYR IV PRN
[2022-11-07] MEDS ORDERED: ONDANSETRON 4 MG/2 ML (SDV) Z0FRAN IVP ONE (20:00)
[2022-11-07] MEDS ORDERED: morphine INJ 10 MG/ML 1ML (SYR OR VIAL) IVP STA ×3 (20:00→22:35)
[2022-11-07] MEDS ORDERED: KETOROLAC 15 MG/ML VIAL IVP ONE (20:00)
[2022-11-07] MEDS ORDERED: NS IV 1000 ML 1,000 ML IV STA ×2 (20:00→21:16)
--- NOTE | 2022-11-07 20:03 | ED General ---
General Chief Complaint: Back Problems Stated Complaint: AB PAIN Nursing Triage Note: Pt presents with c/o R flank and back pain that started just prior to arrival, pt reports becoming diaphoretic and nauseated with onset. He reports hx of kidney stones, but this is worse. Pt was laying on couch at time of onset. He states he just drank a beer. Last meth use was 2-3 days ago. Source of Information: Patient Exam Limitations: No Limitations History of Present Illness Date Seen by Provider: Nov 07, 2022 Time Seen by Provider: 20:03 Initial Comments Patient is a 36-year-old male who presents to the emergency room with a chief complaint of right flank, right lower quadrant, right back pain onset just prior to arrival. Patient states that he is very nauseous and feels like he needs to throw up. He has a history of kidney stones. He states its been years since he had a kidney stone. He denies any recent fevers or chills. No dysuria. Normal bowel movements. Has had no abdominal surgeries in his past. He does admit to a history of methamphetamine abuse last use was 2 to 3 days ago. Allergic to latex. Smoker. Has not taken anything for the pain. Very agitated, anxious and writhing around on presentation. Timing/Duration: 1-3 Hours Severity: Severe Associated Systoms: Nausea/Vomiting Allergies and Home Medications Allergies Coded Allergies: latex (Verified Allergy, Mild, 08/15/11) Patient Home Medication List Home Medication List Reviewed: Yes Amoxicillin (Amoxicillin) 500 Mg Capsule, 500 MG PO TID Prescribed by: TALHA DELA CRUZ on 10/20/18 180 Hydrocodone/Acetaminophen (Hydrocodone-Acetamin 5-325 mg) 5 Mg-325 Mg Tablet, 1 TAB PO Q6H PRN for PAIN-MODERATE (5-7) Prescribed by: CHRIS RITTER on 11/07/222334 Ondansetron (Ondansetron Odt) 4 Mg Tab.rapdis, 4 MG SL Q8H PRN for NAUSEA/VOMITING Prescribed by: CHRIS RITTER on 11/07/222334 Tamsulosin HCl (Flomax) 0.4 Mg Cap, 0.4 MG PO HS Prescribed by: CHRIS RITTER on 11/07/222334 Review of Systems Review of Systems Constitutional: see HPI EENTM: no symptoms reported Respiratory: no symptoms reported Cardiovascular: no symptoms reported Gastrointestinal: RLQ, abdominal pain Genitourinary: no symptoms reported; No dysuria, No hematuria Musculoskeletal: back pain (right flank) Skin: no symptoms reported All Other Systems Reviewed Negative Unless Noted: Yes Past Xcbhuej-Wwytjc-Kkmprn Hx Immunizations Up To Date Tetanus Booster (TDap): Unknown Influenza Vaccine Up-to-Date: No; Not Current First/Initial COVID19 Vaccinat: 12/2020 Second COVID19 Vaccination James: 01/2021 Third COVID19 Vaccination Date: 12/2020 Seasonal Allergies Seasonal Allergies: No Past Medical History Surgeries: Yes (hernia repair) Orthopedic Respiratory: No Cardiac: Yes (Abnormal EKG) Neurological: No Genitourinary: No Gastrointestinal: No Musculoskeletal: No Endocrine: No HEENT: No Cancer: No Psychosocial: No Integumentary: No Blood Disorders: No Adverse Reaction/Blood Tranf: No Physical Exam Vital Signs Vital Signs - First Documented 11/07/22 19:55 Temp 34.4 Pulse 86 Resp 20 B/P (MAP) 138/97 (111) Capillary Refill : Less Than 3 Seconds Height, Weight, BMI Height: 6'2.00" Weight: 145lbs. oz. [id number]; 19.00 BMI Method:Stated General Appearance: Severe Distress, Thin Eyes: Bilateral Eye Normal Inspection, Bilateral Eye PERRL, Bilateral Eye EOMI HEENT: PERRL/EOMI Gastrointestinal: Soft, Tenderness (right flank) Back: Normal Inspection, CVA Tenderness (R) Extremity: Normal Inspection, Normal Range of Motion, No Pedal Edema Neurologic/Psychiatric: Alert, Oriented x3, Other (anxious and agitated) Skin: Warm/Dry, Pallor Progress/Results/Core Measures Suspected Sepsis SIRS Temperature: Pulse: 86 Respiratory Rate: 20 Laboratory Tests 11/07/22 19:53: White Blood Count 9.6 Blood Pressure 138 /97 Mean: 111 Laboratory Tests 11/07/22 19:53: Creatinine 1.19, Platelet Count 323, Total Bilirubin 1.9H Results/Orders Lab Results Laboratory Tests Test 11/07/22 19:53 11/07/22 23:07 Range/Units White Blood Count 9.6 4.3-11.0 10^3/uL Red Blood Count 4.23 L 4.30-5.52 10^6/uL Hemoglobin 14.5 13.3-17.7 g/dL Hematocrit 42 40-54 % Mean Corpuscular Volume 100 H 80-99 fL Mean Corpuscular Hemoglobin 34 25-34 pg Mean Corpuscular Hemoglobin Concent 34 32-36 g/dL Red Cell Distribution Width 12.3 10.0-14.5 % Platelet Count 323 130-400 10^3/uL Mean Platelet Volume 9.8 9.0-12.2 fL Immature Granulocyte % (Auto) 0 % Neutrophils (%) (Auto) 55 42-75 % Lymphocytes (%) (Auto) 35 12-44 % Monocytes (%) (Auto) 8 0-12 % Eosinophils (%) (Auto) 2 0-10 % Basophils (%) (Auto) 1 0-10 % Neutrophils # (Auto) 5.2 1.8-7.8 10^3/uL Lymphocytes # (Auto) 3.4 1.0-4.0 10^3/uL Monocytes # (Auto) 0.8 0.0-1.0 10^3/uL Eosinophils # (Auto) 0.2 0.0-0.3 10^3/uL Basophils # (Auto) 0.1 0.0-0.1 10^3/uL Immature Granulocyte # (Auto) 0.0 0.0-0.1 10^3/uL Sodium Level 139 135-145 MMOL/L Potassium Level 3.6 3.6-5.0 MMOL/L Chloride Level 104 98-107 MMOL/L Carbon Dioxide Level 20 L 21-32 MMOL/L Anion Gap 15 H 5-14 MMOL/L Blood Urea Nitrogen 18 7-18 MG/DL Creatinine 1.19 0.60-1.30 MG/DL Estimat Glomerular Filtration Rate 81 BUN/Creatinine Ratio 15 Glucose Level 121 H 70-105 MG/DL Calcium Level 10.5 H 8.5-10.1 MG/DL Corrected Calcium 10.1 8.5-10.1 MG/DL Total Bilirubin 1.9 H 0.1-1.0 MG/DL Aspartate Amino Transf (AST/SGOT) 12 5-34 U/L Alanine Aminotransferase (ALT/SGPT) 15 0-55 U/L Alkaline Phosphatase 69 40-136 U/L Total Protein 7.1 6.4-8.2 GM/DL Albumin 4.5 3.2-4.5 GM/DL Urine Color DARK YELLOW Urine Clarity CLEAR Urine pH 6.5 5-9 Urine Specific [place] 1.020 1.016-1.022 Urine Protein TRACE H NEGATIVE Urine Glucose (UA) NEGATIVE NEGATIVE Urine Ketones 1+ H NEGATIVE Urine Nitrite NEGATIVE NEGATIVE Urine Bilirubin NEGATIVE NEGATIVE Urine Urobilinogen 1.0 < = 1.0 MG/DL Urine Leukocyte Esterase NEGATIVE NEGATIVE Urine RBC (Auto) 1+ H NEGATIVE Urine RBC 0-2 /HPF Urine WBC NONE /HPF Urine Crystals NONE /LPF Urine Amorphous Sediment MOD DANIS PHOSPHATE H /LPF Urine Bacteria NEGATIVE /HPF Urine Casts PRESENT /LPF Urine Hyaline Casts RARE /LPF Urine Mucus MODERATE H /LPF Urine Culture Indicated NO My Orders Orders - CHRIS RITTER MD Ed Iv/Invasive Line Start (11/07/22 20:00) Cbc With Automated Diff (11/07/22 20:00) Comprehensive Metabolic Panel (11/07/22 20:00) Ua Culture If Indicated (11/07/22 20:00) Ns Iv 1000 Ml (Sodium Chloride 0.9%) (11/07/22 20:00) Ketorolac Injection (Toradol Injection) (11/07/22 20:00) Ondansetron Injection (Zofran Injectio (11/07/22 20:00) Morphine Injection (Morphine Injection (11/07/22 20:00) Ct Abd/Pelvis Wo(Kidney Stone) (11/07/22 20:43) Ns Iv 1000 Ml (Sodium Chloride 0.9%) (11/07/22 21:16) Morphine Injection (Morphine Injection (11/07/22 21:16) Glycopyrrolate Injection (Robinul Inject (11/07/22 22:45) Morphine Injection (Morphine Injection (11/07/22 22:35) Tamsulosin Capsule (Flomax Capsule) (11/08/22 00:03) Rx-Hydrocodone/Apap 5-325 Mg (Rx-Vicodin (11/08/22 00:15) Medications Given in ED Current Medications Medications Dose Ordered Sig/[place] Route Start Time Stop Time Status Last Admin Dose Admin Glycopyrrolate 0.2 mg ONCE ONCE IV 11/07/22 22:45 11/07/22 22:46 DC 11/07/22 22:47 0.2 MG Ketorolac Tromethamine 15 mg ONCE ONCE IVP 11/07/22 20:00 11/07/22 20:03 DC 11/07/22 20:09 15 MG Ondansetron HCl 4 mg ONCE ONCE IVP 11/07/22 20:00 11/07/22 20:03 DC 11/07/22 20:11 4 MG Vital Signs/I&O 11/07/22 19:55 Temp 34.4 Pulse 86 Resp 20 B/P (MAP) 138/97 (111) 11/08/22 00:00 Intake Total 2000 ml Balance 2000 ml Capillary Refill : Less Than 3 Seconds Blood Pressure Mean: 111 Progress Note : Time: 00:11 Progress Note Patient seen and evaluated by me, 36-year-old male with right flank pain. Ev aluation today includes physical exam, CBC, comprehensive metabolic panel, urinalysis and CT scan renal stone protocol. Pertinent physical exam findings well-developed well-nourished 36-year-old male, thin, acutely agitated, anxious, cursing. Grabbing his right side. Heart is regular, rate in the 80s. Blood pressure is normal. Room air sats 98%. Lungs are clear. Abdomen exam is soft with guarding in the right flank. No lower extremity edema. No focal neurologic deficits. Differential diagnosis based on history and physical exam, acute kidney stone. Labs independently reviewed and evaluated by me. CT scan of the abdomen pelvis stone protocol read by radiology. CBC shows a total white count of 9.6 with a hemoglobin of 14.5 hematocrit of 42. Platelet count 323. Chemistry shows a sodium of 139 potassium of 3.6, chloride of 104, CO2 of 20. BUN of 18 creatinine of 1.19. Glucose 121. Total bili slightly elevated at 1.9. Urinalysis shows specific gravity of 1.020 with 1+ red blood cells. No white blood cells negative nitrite negative leukocyte Estrace. CT scan of the abdomen and pelvis stone protocol shows a 2 mm stone almost to the ureterovesicular junction. He has mild right hydro nephrosis. Patient was treated with 2 L of normal saline in the emergency department. He had multiple doses of 4 mg of IV morphine, 4 mg of Zofran as well as 0.2 mg of Robinul IV. At the time of discharge the patient is comfortable with almost no pain. I have advised him that he needs to strain his urine until he passes his kidney stone. He has no indication for the need of antibiotics at this time. No concern for urinary tract infection in association with a kidney stone. I have given him some hydrocodone to take home this evening as well as a prescription for hydrocodone, Flomax and Zofran. Return precautions provided to include fever, worsening pain and inability to hold down medications. He verbalized understanding of the plan of care as does his significant other who is at the bedside. All questions are sought and answered. Patient is improved at discharge. Diagnostic Imaging Diagonstic Imaging: CT Comments [facility] [place], [place] NAME: VALERIO ARANDA [facility] REC#: [id number] PT STATUS: REG ER : 1985 PHYSICIAN: CHRIS RITTER MD ADMIT DATE: 11/07/22/ER Signed Date of Exam:11/07/22 CT ABD/PELVIS WO(KIDNEY STONE) Clinical indications: Patient with right flank pain. Patient has history of stones. Exam: CT exam of the abdomen and pelvis is performed without IV or oral contrast using stone protocol. Coronal and sagittal reformatted images were created. Auto Exposure Controls were utilized during the CT exam to meet ALARA standards for radiation dose reduction. Comparisons: CT scan abdomen and pelvis without contrast dated 04/25/2020. Findings: Visualized lung bases: Unremarkable. Liver: Unremarkable as visualized. Gallbladder: Unremarkable. Pancreas: Unremarkable as visualized. Spleen: Unremarkable as visualized. Adrenal glands: Unremarkable. Kidneys/ ureters: There is interval development of a 2 mm stone within the distal right ureter which is roughly 3 cm from the UVJ region. There is mild right hydronephrosis. Previously seen stone in distal left ureter has resolved. There is a roughly 1 mm nonobstructive stone involving the inferior aspect of the right kidney. Left kidney shows no hydronephrosis. Aorta: Unremarkable as visualized. Intraabdominal/ retroperitoneal contents: Unremarkable. Intestines: Unremarkable as visualized. Stomach is fluid and debris distended. Appendix: Unremarkable. Bladder: Unremarkable as visualized. Pelvic organs: Unremarkable as visualized. Extra abdominal/ pelvis regions: Unremarkable. Abdominal wall: Unremarkable. Bones: Unremarkable. Impression: 1: Interval development of a 2 mm stone within the distal right ureter with mild right hydronephrosis. 2: The previously seen stone in the distal left ureter has resolved. Dictated by: Dictated on workstation # [id number] Dict: 11/07/222103 Trans: 11/07/222123 [facility] [id number] Interpreted by: JEFF MORENO MD Electronically signed by: JEFF MORENO MD 11/07/222123 Departure Impression Primary Impression: Kidney stone on right side Disposition: HOME, SELF-CARE Condition: Improved Departure-Patient Inst. Decision time for Depature: 00:08 Referrals: [facility],LOCAL PHYSICIAN (PCP) Primary Care Physician Patient Instructions: Kidney Stone, Adult ED Add. Discharge Instructions: Drink plenty of fluids to stay well-hydrated. You will need to strain your urine to note when you pass the kidney stone. [id number] ibuprofen 3 tablets which is 600 mg every 6 hours with food as needed for pain. Hydrocodone 5 mg tablets 1 every 4-6 hours as needed for more severe pain. Flomax 1 tablet at night for the next 2 weeks or until you passed the stone. Zofran 4 mg tablets every 8 hours as needed for nausea. If you develop worsening pain, fever over 101 or any other emergent, concerning symptoms please return to the emergency department for reevaluation. Scripts Ondansetron (Ondansetron Odt) 4 Mg Tab.rapdis 4 MG SL Q8H PRN for NAUSEA/VOMITING, #10 TAB Prov: CHRIS RITTER MD 11/07/22 Hydrocodone/Acetaminophen (Hydrocodone-Acetamin 5-325 mg) 5 Mg-325 Mg Tablet 1 TAB PO Q6H PRN for PAIN-MODERATE (5-7), #10 TAB Prov: CHRIS RITTER MD 11/07/22 Tamsulosin HCl (Flomax) 0.4 Mg Cap 0.4 MG PO HS, #14 CAP Prov: CHRIS RITTER MD 11/07/22 CHRIS RITTER MD Nov 07, 2022 20:03
[2022-11-07 20:11] LABS: BASOPHILS # (AUTO) 0.1 10^3/uL (0.0-0.1); BASOPHILS % (AUTO) 1 % (0-10); EOSINOPHILS # (AUTO) 0.2 10^3/uL (0.0-0.3); EOSINOPHILS % (AUTO) 2 % (0-10); HEMATOCRIT 42 % (40-54); HEMOGLOBIN 14.5 g/dL (13.3-17.7); LYMPHOCYTES # (AUTO) 3.4 10^3/uL (1.0-4.0); LYMPHOCYTES % (AUTO) 35 % (12-44); MEAN CORPUSCULAR HEMOGLOBIN 34 pg (25-34); MEAN CORPUSCULAR HGB CONC 34 g/dL (32-36); MEAN CORPUSCULAR VOLUME 100 fL (80-99); MEAN PLATELET VOLUME 9.8 fL (9.0-12.2); MONOCYTES # (AUTO) 0.8 10^3/uL (0.0-1.0); MONOCYTES % (AUTO) 8 % (0-12); NEUTROPHILS # (AUTO) 5.2 10^3/uL (1.8-7.8); NEUTROPHILS % (AUTO) 55 % (42-75); PLATELET COUNT 323 10^3/uL (130-400); WHITE BLOOD COUNT 9.6 10^3/uL (4.3-11.0)
[2022-11-07 20:30] LABS: ALBUMIN 4.5 GM/DL (3.2-4.5); BILIRUBIN,TOTAL 1.9 MG/DL (0.1-1.0); CALCIUM 10.5 MG/DL (8.5-10.1); CREATININE SERUM 1.19 MG/DL (0.60-1.30); POTASSIUM 3.6 MMOL/L (3.6-5.0); TOTAL PROTEIN 7.1 GM/DL (6.4-8.2)
--- NOTE | 2022-11-07 21:22 | Diagnostic Imaging Report ---
Clinical indications: Patient with right flank pain. Patient has history of stones. Exam: CT exam of the abdomen and pelvis is performed without IV or oral contrast using stone protocol. Coronal and sagittal reformatted images were created. Auto Exposure Controls were utilized during the CT exam to meet ALARA standards for radiation dose reduction. Comparisons: CT scan abdomen and pelvis without contrast dated 04/25/2020. Findings: Visualized lung bases: Unremarkable. Liver: Unremarkable as visualized. Gallbladder: Unremarkable. Pancreas: Unremarkable as visualized. Spleen: Unremarkable as visualized. Adrenal glands: Unremarkable. Kidneys/ ureters: There is interval development of a 2 mm stone within the distal right ureter which is roughly 3 cm from the UVJ region. There is mild right hydronephrosis. Previously seen stone in distal left ureter has resolved. There is a roughly 1 mm nonobstructive stone involving the inferior aspect of the right kidney. Left kidney shows no hydronephrosis. Aorta: Unremarkable as visualized. Intraabdominal/ retroperitoneal contents: Unremarkable. Intestines: Unremarkable as visualized. Stomach is fluid and debris distended. Appendix: Unremarkable. Bladder: Unremarkable as visualized. Pelvic organs: Unremarkable as visualized. Extra abdominal/ pelvis regions: Unremarkable. Abdominal wall: Unremarkable. Bones: Unremarkable. Impression: 1: Interval development of a 2 mm stone within the distal right ureter with mild right hydronephrosis. 2: The previously seen stone in the distal left ureter has resolved. Dictated by: Dictated on workstation # [id number]
[2022-11-07] MEDS ORDERED: GLYCOPYRROLATE 0.2 MG/ML (ROBINUL) 2 ML VIAL IV ONE (22:45)
[2022-11-07 23:14] LABS: BILIRUBIN,URINE NEGATIVE (NEGATIVE); CLARITY,URINE CLEAR; COLOR,URINE DARK YELLOW; GLUCOSE, URINE (UA) NEGATIVE (NEGATIVE); KETONES,URINE 1+ (NEGATIVE); LEUKOCYTE ESTERASE ,URINE NEGATIVE (NEGATIVE); NITRITE,URINE NEGATIVE (NEGATIVE); PH,URINE 6.5 (5-9); PROTEIN,URINE TRACE (NEGATIVE)
[2022-11-07] MEDS ORDERED: ONDA4TAB11 SL (23:35)
[2022-11-07] MEDS ORDERED: TMSL.4C PO (23:35)
[2022-11-07] MEDS ORDERED: ACHD5005 PO (23:35)
[2022-11-07 23:38] LABS: BACTERIA,URINE NEGATIVE /HPF; RBC,URINE 0-2 /HPF
[2022-11-07 23:39] LABS: AMORPHOUS SEDIMENT,UR MOD AMOR PHOSPHATE /LPF; HYALINE CASTS, URINE RARE /LPF
[2022-11-08] MEDS ORDERED: TAMSULOSIN 0.4 MG (FLOMAX) CAP PO STA (00:03)
[2022-11-08 00:12] VITALS: BP 128/91
== END 2022-11-08 00:18 | disposition home or self-care (01) ==
LOC: EDUNIT# 19:54 → ER 19:55
DX: N13.2 Hydronephrosis with renal and ureteral calculous obstruction (principal); F17.200 Nicotine dependence, unspecified, uncomplicated; Z91.040 Latex allergy status
CPT/HCPCS: 36415; 74176; 80053; 81000; 85025

== ENCOUNTER 2023-01-24 22:52 | Emergency (ER) | payer SELFPAY ==
[~2023-01-24] VITALS: Ht 185.4 cm; Wt 72.5 kg
[~2023-01-24 22:52] MED LIST changes: +ACHD5005 PO; +ONDA4TAB11 SL; +TMSL.4C PO
[2023-01-24] MEDS ORDERED: ASPIRIN 81 MG CHEWABLE TABLET PO ONE (23:00)
[2023-01-24] MEDS ORDERED: NITROGLYCERIN 0.4 MG SL TABLETS BTL 25'S SL PRN (23:00)
[2023-01-24 23:09] LABS: BASOPHILS # (AUTO) 0.1 10^3/uL (0.0-0.1); BASOPHILS % (AUTO) 1 % (0-10); EOSINOPHILS # (AUTO) 0.2 10^3/uL (0.0-0.3); EOSINOPHILS % (AUTO) 3 % (0-10); HEMATOCRIT 40 % (40-54); HEMOGLOBIN 13.6 g/dL (13.3-17.7); LYMPHOCYTES # (AUTO) 2.8 10^3/uL (1.0-4.0); LYMPHOCYTES % (AUTO) 38 % (12-44); MEAN CORPUSCULAR HEMOGLOBIN 34 pg (25-34); MEAN CORPUSCULAR HGB CONC 34 g/dL (32-36); MEAN CORPUSCULAR VOLUME 101 fL (80-99); MEAN PLATELET VOLUME 10.1 fL (9.0-12.2); MONOCYTES # (AUTO) 0.5 10^3/uL (0.0-1.0); MONOCYTES % (AUTO) 7 % (0-12); NEUTROPHILS # (AUTO) 3.6 10^3/uL (1.8-7.8); NEUTROPHILS % (AUTO) 50 % (42-75); PLATELET COUNT 232 10^3/uL (130-400); WHITE BLOOD COUNT 7.2 10^3/uL (4.3-11.0)
[2023-01-24 23:16] LABS: CHLORIDE 105 MMOL/L (98-107); POTASSIUM 3.9 MMOL/L (3.6-5.0); SODIUM 140 MMOL/L (135-145)
--- NOTE | 2023-01-24 23:16 | ED Chest Pain ---
General Chief Complaint: Chest Pain Stated Complaint: CHEST PAIN Nursing Triage Note: PT AMB TO RM 5 WITH CC OF CP THAT STARTED AT 2200. PT STATES THAT THE PAIN LASTED 2 MINUTES AND THEN STOPPED BEFORE HE ARRIVED. PT REPORTS THAT HE HAS HAD A HEART ATTACK IN THE PAST. Source: patient History of Present Illness Date Seen by Provider: Jan 24, 2023 Time Seen by Provider: 23:00 Initial Comments PT ARRIVES VIA POV FROM HOME C/O CHEST PAIN PAIN BEGAN ABOUT AN HOUR AGO, WHILE LAYING DOWN STATES THE FIRST TIME IT CAME ON IT LASTED 2-3 MINUTES, AND WENT AWAY FOR 20 MINUTES AND THEN CAME BACK FOR 7-8 MINUTES THEN WENT AWAY AGAIN. PAIN IS IN LEFT SIDE OF CHEST, AND DOES NOT RADIATE STATES "I CAN FEEL BOTH SIDES OF MY HEART PUMPING AND IT HURTS LIKE HELL EVERY TIME IT BEATS" NO SENSATION OF IRREGULAR HEART BEAT, STATES REPEATEDLY THAT HE CAN FEEL BOTH SIDE OF HIS HEART BEATING AND IT HURTS EVERY TIME IT BEATS HE RATES THE PAIN "FROM A 3 TO A 7" AND IS NOT HAVING PAIN NOW. NO SHORTNESS OF BREATH NO SWEATS NO NAUSEA/VOMITING NO DIZZINESS OR SYNCOPE NO SWELLING IN LEGS/FEET OR PAIN IN CALVES PT STATES "THIS HAPPENS ALL THE TIME" STATES IT HAS BEEN HAPPENING FOR THE LAST COUPLE OF YEARS HE HAS SEEN DR. DHILLON, [employer] EXECUTIVE, IN THE PAST AND HAS HAD HOLTER MONITOR, STRESS TEST AND ECHOCARDIOGRAM--THESE WERE DONE 03/2021 AND ALL WERE NORMAL PT STATES HE HAD BEEN DX WITH HTN AND HYPERLIPIDEMIA AND PRESCRIBED MEDICATION BUT HE QUIT TAKING THEM A FEW MONTHS AGO. HE HAS NOT ATTEMPTED TO FOLLOW UP WITH ANYONE, AND DR. DHILLON LEFT THE AREA SEVERAL MONTHS AGO. PT SMOKES 1-2 PPD\\ PT HAS HISTORY OF ETOH ABUSE--CLAIMS NONE X 2 MONTHS PT HAS EXTENSIVE DRUG USE "ALL OF THEM", INCLUDING IV DRUGS, CLAIMS "NONE LATELY" PCP: [facility]ER[facility]D Allergies and Home Medications Allergies Coded Allergies: latex (Verified Allergy, Mild, 08/15/11) Patient Home Medication List Amoxicillin (Amoxicillin) 500 Mg Capsule, 500 MG PO TID Prescribed by: TALHA DELA CRUZ on 10/20/18 1801 Hydrocodone/Acetaminophen (Hydrocodone-Acetamin 5-325 mg) 5 Mg-325 Mg Tablet, 1 TAB PO Q6H PRN for PAIN-MODERATE (5-7) Prescribed by: CHRIS RITTER on 11/07/222334 Ondansetron (Ondansetron Odt) 4 Mg Tab.rapdis, 4 MG SL Q8H PRN for NAUSEA/VOMITING Prescribed by: CHRIS RITTER on 11/07/222334 Tamsulosin HCl (Flomax) 0.4 Mg Cap, 0.4 MG PO HS Prescribed by: CHRIS RITTER on 11/07/222334 Review of Systems Review of Systems Constitutional: no symptoms reported Respiratory: No Symptoms Reported Cardiovascular: See HPI Gastrointestinal: No Symptoms Reported Genitourinary: No Symptoms Reported Musculoskeletal: no symptoms reported Skin: no symptoms reported Psychiatric/Neurological: Anxiety Endocrine: No Symptoms Reported Hematologic/Lymphatic: No Symptoms Reported Past Rnyajbk-Tascqc-Nyfhry Hx Patient Social History Tobacco Use?: Yes Tobacco type used: Cigarettes Smoking Status: Current Everyday Smoker Substance use?: Yes Alcohol Use?: Yes Immunizations Up To Date Tetanus Booster (TDap): Unknown First/Initial COVID19 Vaccinat: 12/2020 Second COVID19 Vaccination James: 01/2021 Third COVID19 Vaccination Date: 12/2020 Seasonal Allergies Seasonal Allergies: No Past Medical History Surgeries: Yes (hernia repair) Abdominal, Orthopedic Respiratory: No Cardiac: Yes (Abnormal EKG) High Cholesterol, Hypertension, Palpitations Neurological: No Genitourinary: No Gastrointestinal: Yes Abdominal Hernia Musculoskeletal: Yes (RIGHT ANKLE FX/ORIF) Endocrine: No HEENT: No Cancer: No Psychosocial: Yes (POLYSUBSTANCE ABUSE) Integumentary: No Blood Disorders: No Adverse Reaction/Blood Tranf: No Family Medical History SOCIAL HISTORY: -SMOKES 1-2 PPD -ETOH--HISTORY OF VERY HEAVY, DAILY USE--CLAIMS NONE X 2 MONTHS PER PT ON 01/24/23 -DRUGS--STATES HE HAS USED "ALL OF THEM" INCLUDING IV DRUGS--HE WILL NOT ELABORATE WHEN HE LAST USED ANY DRUGS PAST SURGICAL HISTORY: -HERNIA REPAIR -RIGHT ANKLE FX / ORIF STRESS TEST 04/09/[address] DHILLON: IMPRESSION: 1. Normal heart rate and a hypertensive blood pressure response to exercise. 2. There was no chest discomfort, arrhythmias, or electrocardiogram changes during the test. 3. The patient exhibited excellent exercise capacity for age at 11 minutes and 27 seconds of the Joshua protocol. 4. There was normal myocardial perfusion in all segments without evidence of infarction or ischemia. 5. There was normal wall motion in all segments with a calculated ejection fraction of 58%. HOLTER MONITOR 04/07/[address] DHILLON: RESULTS: 1. Baseline sinus rhythm with an average heart rate of 69 bpm, ranging from 44-126 bpm. 2. There were rare (18), isolated premature supraventricular complexes. 3. There were rare (7), isolated premature ventricular complexes. 4. There were no pauses exceeding 2 seconds in duration. 5. No patient diary was received. IMPRESSION: 1. This is a 24-hour Holter monitor report. 2. Baseline sinus rhythm with an average heart rate of 69 bpm, ranging from 44-126 bpm with rare, isolated premature supraventricular and premature ventricular complexes. 3. No patient diary was received. ECHOCARDIOGRAM 04/07/[address] DHILLON: -NORMAL ECHOCARDIOGRAM WITH EF 65-70% Physical Exam Vital Signs Vital Signs - First Documented 01/24/23 23:01 Pulse 70 B/P (MAP) 132/95 (107) Pulse Ox 100 O2 Delivery Room Air Capillary Refill : Height, Weight, BMI Height: 6'2.00" Weight: 145lbs. oz. 65.198828nt; 21.00 BMI Method:Stated General Appearance: No Apparent Distress, WD/WN, Anxious, Thin, Other (FILTHY, MALODOROUS, HAIR IS LONG / MATTED WITH DRED LOCKS. HE TALKS RAPIDLY NON-STOP AND IS CONSTANTLY REPEATING THINGS OVER AND OVER. 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 II- XII Norm as Tested, Other (ANXIOUS) Skin: Normal Color, Warm/Dry, Tattoos/Piercings (MULTIPLE TATTOOS) Progress/Results/Core Measures Results/Orders Lab Results Laboratory Tests Test 01/24/23 22:59 01/25/23 00:14 01/25/23 01:29 Range/Units White Blood Count 7.2 4.3-11.0 10^3/uL Red Blood Count 4.01 L 4.30-5.52 10^6/uL Hemoglobin 13.6 13.3-17.7 g/dL Hematocrit 40 40-54 % Mean Corpuscular Volume 101 H 80-99 fL Mean Corpuscular Hemoglobin 34 25-34 pg Mean Corpuscular Hemoglobin Concent 34 32-36 g/dL Red Cell Distribution Width 11.9 10.0-14.5 % Platelet Count 232 130-400 10^3/uL Mean Platelet Volume 10.1 9.0-12.2 fL Immature Granulocyte % (Auto) 0 % Neutrophils (%) (Auto) 50 42-75 % Lymphocytes (%) (Auto) 38 12-44 % Monocytes (%) (Auto) 7 0-12 % Eosinophils (%) (Auto) 3 0-10 % Basophils (%) (Auto) 1 0-10 % Neutrophils # (Auto) 3.6 1.8-7.8 10^3/uL Lymphocytes # (Auto) 2.8 1.0-4.0 10^3/uL Monocytes # (Auto) 0.5 0.0-1.0 10^3/uL Eosinophils # (Auto) 0.2 0.0-0.3 10^3/uL Basophils # (Auto) 0.1 0.0-0.1 10^3/uL Immature Granulocyte # (Auto) 0.0 0.0-0.1 10^3/uL Prothrombin Time 14.2 12.2-14.7 SEC INR Comment 1.1 0.8-1.4 Activated Partial Thromboplast Time 36 H 24-35 SEC D-Dimer < 0.27 0.00-0.49 UG/ML Sodium Level 140 135-145 MMOL/L Potassium Level 3.9 3.6-5.0 MMOL/L Chloride Level 105 98-107 MMOL/L Carbon Dioxide Level 27 21-32 MMOL/L Anion Gap 8 5-14 MMOL/L Blood Urea Nitrogen 16 7-18 MG/DL Creatinine 1.06 0.60-1.30 MG/DL Estimat Glomerular Filtration Rate 92 BUN/Creatinine Ratio 15 Glucose Level 96 70-105 MG/DL Calcium Level 10.0 8.5-10.1 MG/DL Corrected Calcium 10.0 8.5-10.1 MG/DL Magnesium Level 2.0 1.6-2.4 MG/DL Total Bilirubin 1.0 0.1-1.0 MG/DL Aspartate Amino Transf (AST/SGOT) 16 5-34 U/L Alanine Aminotransferase (ALT/SGPT) 17 0-55 U/L Alkaline Phosphatase 64 40-136 U/L Total Creatine Kinase 73 30-200 U/L Creatine Kinase MB 0.5 <6.6 NG/ML Myoglobin 20.6 10.0-92.0 NG/ML Troponin I < 0.028 < 0.028 <0.028 NG/ML B-Type Natriuretic Peptide 29.4 <100.0 PG/ML Total Protein 6.4 6.4-8.2 GM/DL Albumin 4.0 3.2-4.5 GM/DL Amylase Level 35 25-125 U/L Lipase 16 8-78 U/L Serum Alcohol < 10 <10 MG/DL Urine Color YELLOW Urine Clarity CLEAR Urine pH 7.0 5-9 Urine Specific [place] 1.015 L 1.016-1.022 Urine Protein NEGATIVE NEGATIVE Urine Glucose (UA) NEGATIVE NEGATIVE Urine Ketones NEGATIVE NEGATIVE Urine Nitrite NEGATIVE NEGATIVE Urine Bilirubin NEGATIVE NEGATIVE Urine Urobilinogen 1.0 < = 1.0 MG/DL Urine Leukocyte Esterase NEGATIVE NEGATIVE Urine RBC (Auto) NEGATIVE NEGATIVE Urine RBC NONE /HPF Urine WBC NONE /HPF Urine Crystals PRESENT H /LPF Urine Amorphous Sediment MOD DANIS PHOSPHATE H /LPF Urine Bacteria NEGATIVE /HPF Urine Casts NONE /LPF Urine Mucus NEGATIVE /LPF Urine Culture Indicated NO Urine Opiates Screen NEGATIVE NEGATIVE Urine Oxycodone Screen NEGATIVE NEGATIVE Urine Methadone Screen NEGATIVE NEGATIVE Urine Propoxyphene Screen NEGATIVE NEGATIVE Urine Barbiturates Screen NEGATIVE NEGATIVE Ur Tricyclic Antidepressants Screen NEGATIVE NEGATIVE Urine Phencyclidine Screen NEGATIVE NEGATIVE Urine Amphetamines Screen NEGATIVE NEGATIVE Urine Methamphetamines Screen NEGATIVE NEGATIVE Urine Benzodiazepines Screen NEGATIVE NEGATIVE Urine Cocaine Screen NEGATIVE NEGATIVE Urine Cannabinoids Screen NEGATIVE NEGATIVE My Orders Orders - KADEEM PATEL DO Ekg Tracing (01/24/23 22:56) Ed Iv/Invasive Line Start (01/24/23 22:59) O2 (01/24/23 22:59) Monitor-Rhythm Ecg Trace Only (01/24/23 22:59) Cbc With Automated Diff (01/24/23 22:59) Magnesium (01/24/23 22:59) Chest 1 View, Ap/Pa Only (01/24/23 22:59) Comprehensive Metabolic Panel (01/24/23 22:59) Myoglobin Serum (01/24/23 22:59) Protime With Inr (01/24/23 22:59) Partial Thromboplastin Time (01/24/23 22:59) O2 (01/24/23 22:59) Ed Iv/Invasive Line Start (01/24/23 22:59) Creatine Kinase (01/24/23 22:59) Creatine Kinase Mb (01/24/23 22:59) Lipase (01/24/23 22:59) Amylase (01/24/23 22:59) Bnp [place] (01/24/23 22:59) Fibrin Degradation Products (01/24/23 22:59) Troponin I [place] (01/24/23 22:59) Nitroglycerin 0.4 Mg Btl 25's (Nitroglyc (01/24/23 23:00) Aspirin Chewable Tablet (Aspirin Chewabl (01/24/23 23:00) Alcohol (01/24/23 22:59) Drug Screen Stat (Urine) (01/24/23 22:59) Ua Culture If Indicated (01/24/23 22:59) Ct Angio Chest W (R/O Pe) (01/24/23 23:41) Iohexol Injection (Omnipaque 350 Mg/Ml 1 (01/25/23 00:00) Received Contrast (Hold Metformin- Contr (01/25/23 00:00) Ns (Ivpb) 100 Ml (Sodium Chloride 0.9% 1 (01/25/23 00:00) Troponin I [place] (01/25/23 01:22) Ekg Tracing (01/25/23 01:22) Medications Given in ED Current Medications Medications Dose Ordered Sig/[place] Route Start Time Stop Time Status Last Admin Dose Admin Aspirin 324 mg ONCE ONCE PO 01/24/23 23:00 01/24/23 23:01 DC 01/24/23 23:11 324 MG Iohexol 100 ml ONCE ONCE IV 01/25/23 00:00 01/25/23 00:01 DC 01/24/23 23:58 85 ML Sodium Chloride 100 ml ONCE ONCE IV 01/25/23 00:00 01/25/23 00:01 DC 01/24/23 23:58 80 ML Vital Signs/I&O 01/24/23 23:01 Pulse 70 B/P (MAP) 132/95 (107) Pulse Ox 100 O2 Delivery Room Air Blood Pressure Mean: 107 Progress Progress Note : Progress Note VITALS ON ARRIVAL: HR 70, BP 132/95, O2 SAT 100% ON ROOM AIR GIVEN: -ASPIRIN LABS: -CBC NORMAL -CMP NORMAL -TROPONIN NEGATIVE -BNP NORMAL -COAGULATION TESTS NORMAL -MG NORMAL -D-DIMER NEGATIVE -AMYLASE/LIPASE NEGATIVE -UA CLEAR -ETOH NEGATIVE -UDS NEGATIVE EKG --NO STEMI CXR UNREMARKABLE, PENDING RADIOLOGIST REVIEW CT CHEST ANGIOGRAM Initial ECG Impression Date: Jan 24, 2023 Initial ECG Impression Time: 23:00 Initial ECG Rate: 70 Initial ECG Rhythm: Normal Sinus Initial ECG Intervals TN 142 QRS 120 QT/QTC 369/391 Initial ECG Impression: Nonspecific Changes Initial ECG Comparisson: No Previous ECG Available Comment INTERPRETED BY ME Diagnostic Imaging Comments CXR--NO ACUTE PROCESS, PENDING RADIOLOGIST REVIEW CT CHEST ANGIOGRAM--PER [facility] VIA FAX AT 0104 -NO P.E. -2.3 CM LUCENCY ALONG RIGHT HEART BORDER, MAY REPRESENT PERICARDIAL CYST. Reviewed: Reviewed by Me Departure Impression Primary Impression: Chest pain Disposition: HOME, SELF-CARE Condition: Improved Departure-Patient Inst. Decision time for Depature: 02:12 Referrals: [facility] [place] (PCP/Family) Primary Care Physician LUPE MORRIS MD [facility] GARTH DAILEY MD Patient Instructions: Chest Pain (DC) Add. Discharge Instructions: HOME, REST FOLLOW UP WITH DR. DAILEY OR DR. MORRIS, CARDIOLOGISTS FOR FURTHER EVALUATION OF YOUR SYMPTOMS--CALL IN THE MORNING TO SCHEDULE AN APPOINTMENT RETURN TO ER IF SYMPTOMS WORSEN All discharge instructions reviewed with patient and/or family. Voiced understanding. KADEEM PATEL DO Jan 24, 2023 23:16
[2023-01-24 23:17] LABS: AMYLASE 35 U/L (25-125); INR 1.1 (0.8-1.4); PROTHROMBIN TIME PATIENT 14.2 SEC (12.2-14.7)
[2023-01-24 23:18] LABS: GLUCOSE 96 MG/DL (70-105); PARTIAL THROMBOPLASTIN TIME 36 SEC (24-35)
[2023-01-24 23:19] LABS: TOTAL PROTEIN 6.4 GM/DL (6.4-8.2)
[2023-01-24 23:20] LABS: CARBON DIOXIDE 27 MMOL/L (21-32)
[2023-01-24 23:22] LABS: ALKALINE PHOSPHATASE 64 U/L (40-136); CREATININE SERUM 1.06 MG/DL (0.60-1.30); GFR ESTIMATED 92
[2023-01-24 23:23] LABS: BUN/CREATININE RATIO 15
[2023-01-24 23:25] LABS: ALANINE AMINOTRANSFERASE 17 U/L (0-55)
[2023-01-24 23:26] LABS: LIPASE 16 U/L (8-78)
[2023-01-24 23:27] LABS: CREATINE KINASE 73 U/L (30-200)
[2023-01-24 23:29] LABS: FIBRIN DEGRADATION PRODUCTS < 0.27 UG/ML (0.00-0.49)
[2023-01-24 23:33] LABS: CREATINE KINASE MB 0.5 NG/ML (<6.6)
[2023-01-25] MEDS ORDERED: NS 100 ML (IVPB) BAG IV ONE
[2023-01-25] MEDS ORDERED: HOLD METFORMIN - RECEIVED CONTRAST 20 ML VIAL IV SCH
[2023-01-25] MEDS ORDERED: IOHEXOL 350 MG/ML 100 ML (OMNIPAQUE 350) VIAL IV ONE
[2023-01-25 00:31] LABS: AMORPHOUS SEDIMENT,UR MOD AMOR PHOSPHATE /LPF; BACTERIA,URINE NEGATIVE /HPF; BILIRUBIN,URINE NEGATIVE (NEGATIVE); CLARITY,URINE CLEAR; COLOR,URINE YELLOW; GLUCOSE, URINE (UA) NEGATIVE (NEGATIVE); KETONES,URINE NEGATIVE (NEGATIVE); LEUKOCYTE ESTERASE ,URINE NEGATIVE (NEGATIVE); NITRITE,URINE NEGATIVE (NEGATIVE); PROTEIN,URINE NEGATIVE (NEGATIVE)
[2023-01-25 00:37] LABS: AMPHETAMINE SCREEN, URINE NEGATIVE (NEGATIVE); BARBITURATE SCREEN URINE NEGATIVE (NEGATIVE); BENZODIAZEPINES SCREEN URINE NEGATIVE (NEGATIVE); CANNABINOID SCREEN, URINE NEGATIVE (NEGATIVE); COCAINE SCREEN URINE NEGATIVE (NEGATIVE); METHADONE STAT NEGATIVE (NEGATIVE); OPIATE SCREEN URINE NEGATIVE (NEGATIVE); OXYCODONE STAT NEGATIVE (NEGATIVE); PROPOXYPHENE STAT NEGATIVE (NEGATIVE); TRICYCLIC ANTIDEPRESSANTS SCRE NEGATIVE (NEGATIVE)
[2023-01-25 02:23] VITALS: BP 125/90
--- NOTE | 2023-01-25 04:56 | Diagnostic Imaging Report ---
INDICATION: 37-year-old male with severe chest pain. Patient also has a history of myocardial infarction. COMPARISONS: None TECHNIQUE: Postcontrast 2.5 mm helical axial tomographic images of the chest were obtained. Multiplanar maximum intensity projection images are provided. FINDINGS: There are few shotty benign-appearing axillary nodes but no evidence of axillary adenopathy. There is no mediastinal or hilar adenopathy. Cardiac contour is normal. Thoracic aortic contour is also normal with no evidence of aneurysm or dissection. There is normal arch origin of the great vessels. Pulmonary outflow tract as well as the right and left pulmonary arteries, their segmental and subsegmental branches are patent with no evidence of intraluminal thrombus to suggest a pulmonary embolism. Lungs are clear with no consolidation, effusion or pneumothorax. Limited assessment of the abdomen shows no overall gross abnormalities. Bone windows show no fracture or subluxation, bony destruction or remodeling. IMPRESSION: 1. No CT angiographic evidence for aortic aneurysm, dissection or pulmonary embolism. 2. The lungs are clear with no consolidation, effusion or pneumothorax. Dictated by: Dictated on workstation # [id number]
--- NOTE | 2023-01-25 07:33 | Diagnostic Imaging Report ---
INDICATION: Chest pain EXAMINATION: Chest 01/24/2023 COMPARISON: 05/02/2021 Single view chest Lungs hyperinflated. Heart and pulmonary vasculature normal. There are no infiltrates or effusions. No pneumothorax. IMPRESSION: 1. No acute cardiopulmonary process. 2. Findings of COPD. 3. Not mentioned above questionable nodule seen in the right midlung partially obscured by an overlying lead. Follow-up is recommended. Dictated by: Dictated on workstation # [id number]
== END 2023-01-25 02:24 | disposition home or self-care (01) ==
LOC: EDUNIT# 22:52 → ER 22:53
DX: R07.89 Other chest pain (principal); F17.210 Nicotine dependence, cigarettes, uncomplicated; Z91.040 Latex allergy status
CPT/HCPCS: 71045; 71275; 80053; 80306; 81000; 82150; 82550; 82553; 83690; 83735; 83874; 83880; 84484 ×2; 85025; 85379; 85610; 85730; 93005 ×2; 93041; 99284; G0480; 36415; 80320

== ENCOUNTER 2023-04-01 23:38 | Emergency (ER) | payer OTHER ==
[~2023-04-01] VITALS: Ht 185 cm; Wt 68.0 kg
--- NOTE | 2023-04-01 23:57 | ED Trauma-Multisystem ---
General Stated Complaint: FALL,LEFT RIB PX Source of Information: Patient (DIFFICULT HISTORIAN), Old Records History of Present Illness Date Seen by Provider: Apr 01, 2023 Time Seen by Provider: 23:45 Initial Comments PT ARRIVES VIA POV WITH FEMALE PT REPORTS THAT 2 HOURS AGO, HE FELL 6-8 FEET FROM A LADDER C/O LEFT ANTERIOR/LOWER RIB PAIN HE DENIES HITTING HIS HEAD OR HAVING LOSS OF CONSCIOUSNESS, BUT PT HAS ABRASION, BRUISING AND SWELLING TO LEFT LATERAL EYE AND CHEEK AREA. C/O PAIN WITH BREATHING AND FEELS SHORT OF BREATH DENIES NECK OR BACK PAIN DENIES ARM OR LEG PAIN NO NAUSEA/VOMITING HAS NOT TAKEN ANYTHING FOR PAIN PT WITH MULTIPLE VISITS HERE FOR VARIOUS COMPLAINTS PT SMOKES 1-2 PPD HAS HISTORY OF HEAVY ALCOHOL USE, WELL VERY EXTENSIVE HISTORY OF DRUG USE, INCLUDING IV USE--STATES HE HAS "USED THEM ALL" PCP: [facility] Allergies and Home Medications Allergies Coded Allergies: latex (Verified Allergy, Mild, 08/15/11) Patient Home Medication List Amoxicillin (Amoxicillin) 500 Mg Capsule, 500 MG PO TID Prescribed by: TALHA DELA CRUZ on 10/20/18 1801 Hydrocodone/Acetaminophen (Hydrocodone-Acetamin 5-325 mg) 5 Mg-325 Mg Tablet, 1 TAB PO Q6H PRN for PAIN-MODERATE (5-7) Prescribed by: CHRIS RITTER on 11/07/222334 Ondansetron (Ondansetron Odt) 4 Mg Tab.rapdis, 4 MG SL Q8H PRN for NAUSEA/VOMITING Prescribed by: CHRIS RITTER on 11/07/222334 Tamsulosin HCl (Flomax) 0.4 Mg Cap, 0.4 MG PO HS Prescribed by: CHRIS RITTER on 11/07/222334 Review of Systems Review of Systems Constitutional: no symptoms reported Eyes: See HPI Ears: No Symptoms Reported Mouth: No Symptoms Reported Throat: No Symptoms to Report Respiratory: see HPI Cardiovascular: See HPI Gastrointestinal: no symptoms reported Genitourinary: no symptoms reported Musculoskeletal: see HPI Skin: no symptoms reported Psychiatric/Neurological: No Symptoms Reported Past Yeejcxy-Odomuf-Idiukq Hx Patient Social History Tobacco Use?: Yes Tobacco type used: Cigarettes Smoking Status: Current Everyday Smoker Substance use?: Yes Alcohol Use?: Yes Immunizations Up To Date Tetanus Booster (TDap): Unknown First/Initial COVID19 Vaccinat: 12/2020 Second COVID19 Vaccination James: 01/2021 Third COVID19 Vaccination Date: 12/2020 Seasonal Allergies Seasonal Allergies: No Past Medical History Surgeries: Yes (hernia repair) Abdominal, Orthopedic Respiratory: No Cardiac: Yes (Abnormal EKG) High Cholesterol, Hypertension, Palpitations Neurological: No Genitourinary: No Gastrointestinal: Yes Abdominal Hernia Musculoskeletal: Yes (RIGHT ANKLE FX/ORIF) Endocrine: No HEENT: No Cancer: No Psychosocial: Yes (POLYSUBSTANCE ABUSE) Integumentary: No Blood Disorders: No Adverse Reaction/Blood Tranf: No Family Medical History SOCIAL HISTORY: -SMOKES 1-2 PPD -ETOH--HISTORY OF VERY HEAVY, DAILY USE--CLAIMS NONE X 2 MONTHS PER PT ON 01/24/23 -DRUGS--STATES HE HAS USED "ALL OF THEM" INCLUDING IV DRUGS--HE WILL NOT ELABORATE WHEN HE LAST USED ANY DRUGS PAST SURGICAL HISTORY: -HERNIA REPAIR -RIGHT ANKLE FX / ORIF STRESS TEST 04/09/[address] DHILLON: IMPRESSION: 1. Normal heart rate and a hypertensive blood pressure response to exercise. 2. There was no chest discomfort, arrhythmias, or electrocardiogram changes during the test. 3. The patient exhibited excellent exercise capacity for age at 11 minutes and 27 seconds of the Joshua protocol. 4. There was normal myocardial perfusion in all segments without evidence of infarction or ischemia. 5. There was normal wall motion in all segments with a calculated ejection fraction of 58%. HOLTER MONITOR 04/07/[address] DHILLON: RESULTS: 1. Baseline sinus rhythm with an average heart rate of 69 bpm, ranging from 44-126 bpm. 2. There were rare (18), isolated premature supraventricular complexes. 3. There were rare (7), isolated premature ventricular complexes. 4. There were no pauses exceeding 2 seconds in duration. 5. No patient diary was received. IMPRESSION: 1. This is a 24-hour Holter monitor report. 2. Baseline sinus rhythm with an average heart rate of 69 bpm, ranging from 44-126 bpm with rare, isolated premature supraventricular and premature ventricular complexes. 3. No patient diary was received. ECHOCARDIOGRAM 04/07/[address] DHILLON: -NORMAL ECHOCARDIOGRAM WITH EF 65-70% Physical Exam Vital Signs Vital Signs - First Documented 04/02/23 00:07 Temp 37.2 Pulse 100 Resp 20 B/P (MAP) 125/88 (100) Height, Weight, BMI Height: 6'2.00" Weight: 145lbs. oz. 65.861561le; 21.00 BMI Method:Stated General Appearance: No Apparent Distress, WD/WN, Other (UNKEMPT, MALODOROUS, PT WITH EXTREMELY LONG DRED LOCKS--PAST BUTTOCKS IN LENGTH. REEKS OF CIGARETTES ; SPEECH IS RAPID AND SOMEWHAT MUMBLED) Head: Other (ABRASIONS, BRUISING AND SWELLING TO LEFT LATERAL EYE AND CHEEK AREA. ) Eyes: Bilateral Eye PERRL, Bilateral Eye EOMI Ears, Nose, Throat: Hearing Grossly Normal, No Dental Injury, Other (POOR DENTITION) Neck: Full Range of Motion, Normal Inspection, Non Tender, Supple Cardiovascular: Regular Rate, Rhythm, No JVD, No Murmur Respiratory: Normal Breath Sounds, No Accessory Muscle Use, No Respiratory Distress, Other (TENDERNESS TO LEFT LOWER ANTERIOR CHEST/RIBS AND LEFT UPPER QUADRANT. NO SUB Q AIR. ) Gastrointestinal: Soft, Tenderness (LEFT UPPER QUADRANT) Back: Normal Inspection, No CVA Tenderness, No Vertebral Tenderness Extremity: Normal Capillary Refill, Normal Inspection, Normal Range of Motion, Non Tender, No Calf Tenderness, No Pedal Edema Neurologic/Psychiatric: Alert, Oriented x3, No Motor/Sensory Deficits, debeaker II- XII Norm as Tested Skin: Normal Color (DARK SKINNED), Warm/Dry; No Rash [place] Coma Score Best Eye Response (Carmelita): (4) Open Spontaneously Best Verbal Response (Carmelita): (5) Oriented Best Motor Response (Carmelita): (6) Obeys Commands [place] Total: 15 Progress/Results/Core Measures Results/Orders Lab Results Laboratory Tests Test 04/01/23 23:58 04/02/23 00:58 Range/Units White Blood Count 16.3 H 4.3-11.0 10^3/uL Red Blood Count 4.32 4.30-5.52 10^6/uL Hemoglobin 14.5 13.3-17.7 g/dL Hematocrit 42 40-54 % Mean Corpuscular Volume 98 80-99 fL Mean Corpuscular Hemoglobin 34 25-34 pg Mean Corpuscular Hemoglobin Concent 34 32-36 g/dL Red Cell Distribution Width 12.1 10.0-14.5 % Platelet Count 286 130-400 10^3/uL Mean Platelet Volume 10.0 9.0-12.2 fL Immature Granulocyte % (Auto) 1 % Neutrophils (%) (Auto) 82 H 42-75 % Lymphocytes (%) (Auto) 12 12-44 % Monocytes (%) (Auto) 5 0-12 % Eosinophils (%) (Auto) 0 0-10 % Basophils (%) (Auto) 1 0-10 % Neutrophils # (Auto) 13.3 H 1.8-7.8 10^3/uL Lymphocytes # (Auto) 1.9 1.0-4.0 10^3/uL Monocytes # (Auto) 0.8 0.0-1.0 10^3/uL Eosinophils # (Auto) 0.0 0.0-0.3 10^3/uL Basophils # (Auto) 0.1 0.0-0.1 10^3/uL Immature Granulocyte # (Auto) 0.1 0.0-0.1 10^3/uL Neutrophils % (Manual) 75 % Lymphocytes % (Manual) 16 % Monocytes % (Manual) 6 % Eosinophils % (Manual) 1 % Band Neutrophils 2 % Prothrombin Time 13.8 12.2-14.7 SEC INR Comment 1.0 0.8-1.4 Activated Partial Thromboplast Time 30 24-35 SEC Sodium Level 135 135-145 MMOL/L Potassium Level 3.7 3.6-5.0 MMOL/L Chloride Level 101 98-107 MMOL/L Carbon Dioxide Level 20 L 21-32 MMOL/L Anion Gap 14 5-14 MMOL/L Blood Urea Nitrogen 13 7-18 MG/DL Creatinine 1.06 0.60-1.30 MG/DL Estimat Glomerular Filtration Rate 92 BUN/Creatinine Ratio 12 Glucose Level 87 70-105 MG/DL Calcium Level 10.3 H 8.5-10.1 MG/DL Corrected Calcium 8.5-10.1 MG/DL Total Bilirubin 1.7 H 0.1-1.0 MG/DL Aspartate Amino Transf (AST/SGOT) 30 5-34 U/L Alanine Aminotransferase (ALT/SGPT) 25 0-55 U/L Alkaline Phosphatase 78 40-136 U/L Total Protein 7.7 6.4-8.2 GM/DL Albumin 4.8 H 3.2-4.5 GM/DL Amylase Level 26 25-125 U/L Lipase 6 L 8-78 U/L Serum Alcohol 178 H <10 MG/DL My Orders Orders - KADEEM PATEL DO Ed Iv/Invasive Line Start (04/01/23 23:49) Monitor-Rhythm Ecg Trace Only (04/01/23 23:49) Alcohol (04/01/23:49) Amylase (04/01/23:49) Cbc And Automated Diff (04/01/23) Comprehensive Metabolic Panel (04/01/23) Drug Screen Stat (Urine) (04/01/23:) Lipase (04/01/23:) Protime With Inr (04/01/23) Partial Thromboplastin Time (04/01/23:49) Ua Culture If Indicated (04/01/23:49) Ed Iv/Invasive Line Start (04/01/23:49) Lactated Ringers 1,000 Ml (Lactated Ring (04/02/23 00:00) Ct Head/Face/Cervical Wo (04/02/23 00:01) Ct Thoracic/Lumbar Spine Wo (04/02/23 00:01) Ct Chest/Abdomen/Pelvis W (04/02/23 00:01) Chest 1 View, Ap/Pa Only (04/02/23 00:01) Pelvis 1 To 2 Views (04/02/23 00:01) Manual Differential (04/01/23 23:58) Ketorolac Injection (Ketorolac Injection (04/02/23 01:00) Iohexol Injection (Omnipaque 350 Mg/Ml 1 (04/02/23 01:00) Received Contrast (Hold Metformin- Contr (04/02/23 01:00) Sodium Chloride Flush (Catheter Flush Sy (04/02/23 01:00) Ns (Ivpb) 100 Ml (Sodium Chloride 0.9% 1 (04/02/23 01:00) Rx-Tramadol Hcl (Rx-Ultram) (04/02/23 01:08) Rx-Naproxen (Rx-Naprosyn) (04/02/23 01:08) Medications Given in ED Current Medications Medications Dose Ordered Sig/Kenyon Route Start Time Stop Time Status Last Admin Dose Admin Iohexol 100 ml ONCE ONCE IV 04/02/23 01:00 04/02/23 01:01 DC 04/02/23 01:02 80 ML Lactated Ringer's 1,000 ml @ 0 mls/hr Q0M ONCE IV 04/02/23 00:00 04/02/23 00:01 DC 04/02/23 00:05 0 MLS/HR Sodium Chloride 10 ml NEEDED PRN IV 04/02/23 01:00 04/02/23 01:02 10 ML Sodium Chloride 100 ml ONCE ONCE IV 04/02/23 01:00 04/02/23 01:01 DC 04/02/23 01:02 80 ML Vital Signs/I&O 04/02/23 00:07 Temp 37.2 Pulse 100 Resp 20 B/P (MAP) 125/88 (100) Departure Impression Primary Impression: Fall from ladder Additional Impressions: Facial contusion Contusion of left chest wall Alcohol intoxication Disposition: HOME, SELF-CARE Condition: Stable Departure-Patient Inst. Decision time for Depature: 01:10 Referrals: [facility] [place] Primary Care Physician MARICARMEN MARTÍNEZ DO Patient Instructions: Alcohol Intoxication ED, Black Eye ED, CHEST CONTUSION, Rib Fracture or Bruised Rib ED Add. Discharge Instructions: TAKE FREQUENT DEEP BREATHS LOTS OF CLEAR LIQUIDS--WATER, BROTH, JELLO, GATORADE NO ALCOHOL NO DRUGS FOLLOW UP WITH DR. MARTÍNEZ, TRAUMA SURGEON, NEXT WEEK FOR FURTHER CARE-CALL ON TUESDAY MORNING TO SCHEDULE APPOINTMENT Scripts Tramadol HCl (Tramadol HCl) 50 Mg Tablet 50 MG PO Q4H for Pain, #20 TAB Prov: KADEEM PATEL DO 04/02/23 Cyclobenzaprine HCl (Cyclobenzaprine HCl) 10 Mg Tablet 10 MG PO Q8H PRN for SPASMS, #15 TAB 0 Refills Prov: KADEEM PATEL DO 04/02/23 Naproxen (Naproxen) 500 Mg Tablet. 500 MG PO BID, #20 TAB Prov: KADEEM PATEL DO 04/02/23 KADEEM PATEL DO Apr 01, 2023 23:57
[2023-04-02] MEDS ORDERED: LACTATED RINGERS 1,000 ML 1,000 ML IV ONE
[2023-04-02 00:05] LABS: BASOPHILS # (AUTO) 0.1 10^3/uL (0.0-0.1); BASOPHILS % (AUTO) 1 % (0-10); EOSINOPHILS % (AUTO) 0 % (0-10); HEMATOCRIT 42 % (40-54); HEMOGLOBIN 14.5 g/dL (13.3-17.7); LYMPHOCYTES # (AUTO) 1.9 10^3/uL (1.0-4.0); LYMPHOCYTES % (AUTO) 12 % (12-44); MEAN CORPUSCULAR HEMOGLOBIN 34 pg (25-34); MEAN CORPUSCULAR HGB CONC 34 g/dL (32-36); MEAN CORPUSCULAR VOLUME 98 fL (80-99); MONOCYTES # (AUTO) 0.8 10^3/uL (0.0-1.0); MONOCYTES % (AUTO) 5 % (0-12); NEUTROPHILS # (AUTO) 13.3 10^3/uL (1.8-7.8); NEUTROPHILS % (AUTO) 82 % (42-75); PLATELET COUNT 286 10^3/uL (130-400); WHITE BLOOD COUNT 16.3 10^3/uL (4.3-11.0)
[2023-04-02 00:07] VITALS: BP 125/88
[2023-04-02 00:15] LABS: PROTHROMBIN TIME PATIENT 13.8 SEC (12.2-14.7)
[2023-04-02 00:18] LABS: ALBUMIN 4.8 GM/DL (3.2-4.5); CHLORIDE 101 MMOL/L (98-107); POTASSIUM 3.7 MMOL/L (3.6-5.0); SODIUM 135 MMOL/L (135-145)
[2023-04-02 00:19] LABS: AMYLASE 26 U/L (25-125); CALCIUM 10.3 MG/DL (8.5-10.1)
[2023-04-02 00:20] LABS: BAND NEUTROPHILS 2 %; EOSINOPHILS % (MANUAL) 1 %; GLUCOSE 87 MG/DL (70-105); LYMPHOCYTES % (MANUAL) 16 %; MONOCYTES % (MANUAL) 6 %; NEUTROPHILS % (MANUAL) 75 %; TOTAL PROTEIN 7.7 GM/DL (6.4-8.2)
[2023-04-02 00:21] LABS: CARBON DIOXIDE 20 MMOL/L (21-32)
[2023-04-02 00:22] LABS: BILIRUBIN,TOTAL 1.7 MG/DL (0.1-1.0)
[2023-04-02 00:24] LABS: ALKALINE PHOSPHATASE 78 U/L (40-136); CREATININE SERUM 1.06 MG/DL (0.60-1.30); GFR ESTIMATED 92
[2023-04-02 00:25] LABS: BUN/CREATININE RATIO 12
[2023-04-02 00:27] LABS: ALANINE AMINOTRANSFERASE 25 U/L (0-55); LIPASE 6 U/L (8-78)
[2023-04-02] MEDS ORDERED: IOHEXOL 350 MG/ML 100 ML (OMNIPAQUE 350) VIAL IV ONE (01:00)
[2023-04-02] MEDS ORDERED: CATHETER FLUSH 10 ML SYR IV PRN (01:00)
[2023-04-02] MEDS ORDERED: KETOROLAC INJ 30 MG/ML VIAL IVP ONE (01:00)
[2023-04-02] MEDS ORDERED: HOLD METFORMIN - RECEIVED CONTRAST 20 ML VIAL IV SCH (01:00)
[2023-04-02] MEDS ORDERED: NS 100 ML (IVPB) BAG IV ONE (01:00)
[2023-04-02] MEDS ORDERED: RX-NAPROXEN (NAPROSYN) 250 MG TAB PPK#4 PO STA (01:08)
[2023-04-02] MEDS ORDERED: TRAM50TA3 PO (01:15)
[2023-04-02] MEDS ORDERED: CYCL10TA25 PO (01:15)
[2023-04-02] MEDS ORDERED: NAPR500T8 PO (01:15)
[2023-04-02 01:18] LABS: AMORPHOUS SEDIMENT,UR RARE AMOR URATES /LPF; BACTERIA,URINE NEGATIVE /HPF; BILIRUBIN,URINE NEGATIVE (NEGATIVE); CLARITY,URINE CLEAR; COLOR,URINE YELLOW; GLUCOSE, URINE (UA) NEGATIVE (NEGATIVE); KETONES,URINE NEGATIVE (NEGATIVE); LEUKOCYTE ESTERASE ,URINE NEGATIVE (NEGATIVE); NITRITE,URINE NEGATIVE (NEGATIVE); PROTEIN,URINE NEGATIVE (NEGATIVE)
[2023-04-02 01:23] LABS: AMPHETAMINE SCREEN, URINE NEGATIVE (NEGATIVE); BARBITURATE SCREEN URINE NEGATIVE (NEGATIVE); CANNABINOID SCREEN, URINE NEGATIVE (NEGATIVE); COCAINE SCREEN URINE NEGATIVE (NEGATIVE); OPIATE SCREEN URINE NEGATIVE (NEGATIVE); TRICYCLIC ANTIDEPRESSANTS SCRE NEGATIVE (NEGATIVE)
[2023-04-02 01:24] LABS: METHADONE STAT NEGATIVE (NEGATIVE); OXYCODONE STAT NEGATIVE (NEGATIVE)
--- NOTE | 2023-04-02 06:52 | Diagnostic Imaging Report ---
INDICATION: Trauma. Fall. Pelvic pain. Correlation made with CT study performed earlier the same day. FINDINGS: There is contrast within the urinary bladder from prior CT study. There are no findings of pelvic diastases or hip dislocation. The pelvic ring is intact. There is no proximal femoral or pelvic fracture identified. IMPRESSION: 1. Negative AP radiograph of the pelvis. Dictated by: Dictated on workstation # [id number]
--- NOTE | 2023-04-02 07:16 | Diagnostic Imaging Report ---
INDICATION: Trauma, pain. Compared 01/16/2023 FINDINGS: The lungs are clear although hyperexpanded. The cardiomediastinal contours normal. No fracture deformity. IMPRESSION: No acute or posttraumatic sequelae identified. Dictated by: Dictated on workstation # [id number]
--- NOTE | 2023-04-02 07:23 | Diagnostic Imaging Report ---
PROCEDURE: CT head, face, and cervical spine without contrast. TECHNIQUE: Multiple contiguous axial images were obtained through the head, neck, and facial bones without the use of intravenous contrast. Sagittal and coronal reformations through the cervical spine and facial bones were also performed. Auto Exposure Controls were utilized during the CT exam to meet ALARA standards for radiation dose reduction. INDICATION: Trauma, pain with fall Compared with CT head and cervical dated 05/02/2021. Head: There is no hemorrhage, hydrocephalus, edema, mass, mass effect nor evidence for elevated intracerebral pressures. There has been no change from prior. No acute appearing abnormality. Facial bones: No facial fracture or hemo-sinus. No post septal or retrobulbar orbital hematoma. Cervical spine: Cervical statures normal alignment anatomic. No fracture. No paraspinal hemorrhage. IMPRESSION: No hemorrhage, fracture or other acute/posttraumatic abnormalities identified at CT evaluations head, facial bones and cervical spine. Dictated by: Dictated on workstation # [id number]
--- NOTE | 2023-04-02 07:24 | Diagnostic Imaging Report ---
PROCEDURE: CT thoracic and lumbar spine without contrast. TECHNIQUE: Multiple contiguous axial images were obtained through the thoracic and lumbar spine without the use of intravenous contrast. Sagittal and coronal reformations were then performed. All CT scans use one or more of the following dose optimizing techniques: automated exposure control, MA and/or KvP adjustment based on a patient size and exam type, or iterative reconstruction. INDICATION: Fall, pain FINDINGS: T-spine: Thoracic vertebral statures and alignment normal. No fracture or paraspinal hemorrhage. No substantial stenosis. The visible posterior rib segments intact. Lumbar spine: Lumbar statures normal. The alignment anatomic. No fracture. No paraspinal hemorrhage. No substantial stenosis. IMPRESSION: No fracture, malalignment or other injury identified at CT evaluations thoracolumbar spine. Agree with preliminary Dictated by: Dictated on workstation # [id number]
--- NOTE | 2023-04-02 07:42 | Diagnostic Imaging Report ---
PROCEDURE: CT chest, abdomen, and pelvis with contrast. TECHNIQUE: Multiple contiguous axial images were obtained through the chest, abdomen, and pelvis after the administration of intravenous contrast. Auto Exposure Controls were utilized during the CT exam to meet ALARA standards for radiation dose reduction. INDICATION: Trauma, fall, pain Chest: No lung contusion, pneumothorax or hemothorax. No mediastinal or pericardial hemorrhage. No aspiration. No chest wall hematoma or fracture deformity the diaphragms intact no aspiration Abdomen pelvis: No intra-extraperitoneal hemorrhage. Liver, gallbladder, bile ducts, spleen, adrenals, pancreas and kidneys all unremarkable. No mesenteric or bowel wall hematoma. No contrast extravasation. No perforation, ileus or obstruction. The urinary bladder morphology appeared normal. Bony pelvis and spine showed no fracture deformity. IMPRESSION: No acute or posttraumatic abnormality identified CT evaluations chest, abdomen and pelvis. Agree with preliminary Dictated by: Dictated on workstation # [id number]
== END 2023-04-02 01:38 | disposition home or self-care (01) ==
LOC: EDUNIT# 23:38 → ER 23:41
DX: S20.212A Contusion of left front wall of thorax, initial encounter (principal); S00.12XA Contusion of left eyelid and periocular area, initial encounter; S00.83XA Contusion of other part of head, initial encounter; F10.129 Alcohol abuse with intoxication, unspecified; F17.210 Nicotine dependence, cigarettes, uncomplicated; Y90.6 Blood alcohol level of 120-199 mg/100 ml; W11.XXXA Fall on and from ladder, initial encounter
CPT/HCPCS: 70450; 70486; 71045; 71260; 72125; 72128; 72131; 72170; 74177; 80053; 80306; 81000; 82150; 83690; 85007; 85027; 85610; 85730; 93041; 96374; 99284; G0480; 36415; 80320